=== PATIENT | female | born 1930 | race Asian ===

== ENCOUNTER 2017-03-22 04:35 | Inpatient (IN) | payer OTHER ==
[2017-03-22] MEDS ORDERED: NS 1,000 ML IV ONE (04:40)
--- NOTE | 2017-03-22 04:44 | EDPHY ---
H & P HPI/ROS: HPI CHIEF COMPLAINT: Fall, head injury HISTORY OF PRESENT ILLNESS: the patient very pleasant 86-year-old female, she does have significant past medical history for coronary artery disease and on daily aspirin and Plavix, hypertension, diabetes, she states that she was getting up to close the door at her [facility] living facility after she got up to use the bathroom and her right leg buckled underneath her. She fell with head strike. Denies LOC. Denies chest pain or palpitations or shortness of breath. She does complain of dizziness at this time and headache. Also complains of generalized weakness. Upon arrival here in the emergency room she has a GCS 15 she is alert or x4. She moves everything appropriately. She does have blood coming from the right side of her posterior scalp. Denies neck pain chest pain shortness of breath. Past Medical History: Hypertension, diabetes, coronary artery disease on aspirin and Plavix Past Surgical History: cervical fusion Social History: denies daily use of drugs alcohol tobacco products lives at [facility] Family History: noncontributory ROS REVIEW OF SYSTEMS: A comprehensive 10 point review of systems is otherwise negative aside from elements mentioned in the history of present illness. Exam Constitutional appears well nontoxic, triage nursing summary reviewed, vital signs reviewed, awake/alert. Eyes normal conjunctivae and sclera, EOMI, PERRLA. HENT head/neck: blood present right posterior scalp, in matted hair. No midline cervical spine pain, no step-offs, moist mucus membranes, no epistaxis, neck supple/ no meningismus, no raccoon eyes. Respiratory clear to auscultation bilaterally, normal breath sounds, no respiratory distress, no wheezing. Cardiovascular rate normal, regular rhythm, no murmur, no edema, distal pulses normal. Gastrointestinal soft, non-tender, no rebound, no guarding, normal bowel sounds, no distension, no pulsatile mass. Genitourinary no CVA tenderness. Musculoskeletal no midline vertebral tenderness, full range of motion, no calf swelling, no tenderness of extremities, no meningismus, good pulses, neurovascularly intact. Skin pink, warm, & dry, no rash, skin atraumatic. Neurologic awake, alert and oriented x 3, AAOx3, moves all 4 extremities equally, motor intact, sensory intact, CN II-XII intact, normal cerebellar, normal vision, normal speech. Psychiatric normal mood/affect. Heme/Lymph/Immune no lymphadenopathy. Differential Diagnosis: includes but is not limited to in a particular order, electrolyte disturbance, dehydration, mechanical trip and fall with head injury , intracranial bleed, skull fracture, subdural, epidural, traumatic subarachnoid , concussion, closed-head injury Medical Decision Making: plan for this patient youth nutritional monitor, EKG, check basic blood work including coags, troponin, CT head and CT cervical spine due to fall. Reason for CT head and CT cervical spine is fall on aspirin and Plavix. Re-evaluation: CT scan of the Head without contrast and cervical spine without contrast for trauma The results of the study are this shows a subdural hemorrhage 4 mm right parietal region. cervical spine shows no fracture. The study was read by Dr. Post I viewed the images myself on the PACS system. EKG interpretation by me on record in American Board of Addiction Medicine (ABAM) system. Impression Time of EKG 5:07 a.m., this is sinus rhythm rate of 52 micro amplitude. Otherwise no acute ischemic change. 0514AM: I spoke with Neurosurgery Dr. Everton Rich. They will be glad to consult on her. They do recommend admission. ICU admission. Will give DDAVP 0.3mcg/kg for To help with platelet function given that she is on aspirin and Plavix. Total 20mcg will be given. 0515AM: neurosurgery to admit given isolated neuro trauma. Subdural hemorrhage. ED x-ray chest one view negative for acute cardiopulmonary disease. 0527AM: Spoke with Dr. Everton Rich with Neurosurgery agrees to admit this patient. Patient be admitted ICU. At this time she is GCS 15, alert or x4 with no focal neuro deficit. She has a subdural hemorrhage small 4 mm right- sided, I have ordered her DDAVP for Platelet function given on ASA/PLAVIX. daughter updated bedside. Source: Patient, Family, EMS - Medical/Surgical History Hx Asthma: Yes Hx Chronic Respiratory Disease: No Hx Diabetes: Yes Hx Cardiac Disease: Yes Hx Renal Disease: No Hx Cirrhosis: No Hx Alcoholism: No Hx HIV/AIDS: No Hx Splenectomy or Spleen Trauma: No Other PMH: Coronary artery disease with stents 5 years ago at [facility]. [place] 3 weeks ago at [facility] treated without aggressive intervention due to patient's DNR status. HTN, hpylori, presbyopia. hyperlipidemia, duodenal ulcer. insomnia, hysterectomy. gout, spinal stenosis. ASHD, lactose intolerance. osteoporosis. TIA. stents x2. heart attack 2015 - Social History Smoking Status: Never smoked Constitutional: Initial Vital Signs Temperature (C) 36.4 C 03/22/17 04:45 Heart Rate 53 L 03/22/17 04:45 Respiratory Rate 16 03/22/17 04:45 Blood Pressure 179/76 H 03/22/17 04:45 O2 Sat (%) 95 03/22/17 04:45 O2 Delivery Mode Room Air Allergies/Adverse Reactions: tetracycline [Tetracycline] Allergy (Severe, Verified 10/24/15 09:51) Diarrhea lisinopril Allergy (Mild, Verified 10/24/15 09:51) pregabalin [From Lyrica] Allergy (Unknown, Verified 10/24/15 09:51) promethazine HCl [From Phenergan] Allergy (Unknown, Verified 10/24/15 09:51) Influenza Virus Vaccines [Influenza Virus Vaccine] Allergy (Verified 10/24/15 09 :51) ondansetron HCl [From Zofran (as hydrochloride)] Allergy (Verified 10/26/15 11: 45) Home Medications: Medication Instructions Recorded Acetaminophen [Tylenol ES 500 mg 1,000 mg PO BID PRN 10/24/15 (*)] Albuterol Hfa Anes Only [Proair 2 puffs IH Q4 PRN 10/24/15 Hfa Icu (*)] Allopurinol [Allopurinol 300 MG 150 mg PO DAILY 10/24/15 (RX)] Aspirin [Aspirin 81mg (*)] 81 mg PO DAILY 10/24/15 Atorvastatin Calcium [Lipitor 10 10 mg PO DAILY 10/24/15 mg (*)] Calcium Carb W/Vit D [Calcium Carb 500 mg PO BID 10/24/15 W/Vit D 500/200 (*)] Calcium Carbonate [Tums 500MG (*)] 500 mg PO TID PRN 10/24/15 Cetirizine HCl [Zyrtec] 10 mg PO DAILY 10/24/15 Cholecalciferol Vit D3 [Vitamin D3 1,000 units PO DAILY 10/24/15 (*)] Cholecalciferol Vit D3 [Vitamin D3 50,000 unit PO Q30D@09 10/24/15 (*)] D-Methorphan Hb/P-Ephed HCl 10 ml PO Q4 PRN 10/24/15 [Tussin Cough & Cold Liquid] Herbals/Supplements -Info Only 1 ea PO DAILY 10/24/15 Loperamide HCl [Imodium 2 mg (*)] 4 mg PO Q8 PRN 10/24/15 Losartan Potassium [Cozaar 50 mg 50 mg PO DAILY 10/24/15 (*)] Nitroglycerin [Nitrostat 0.4 mg 0.4 mg SL PRN PRN 10/24/15 (*)] Ranolazine [Ranexa] 1,000 mg PO BID 10/24/15 Risedronate Sodium [Actonel] 150 mg PO Q30D@0600 10/24/15 Sennosides/Docusate Sodium 1 each PO DAILY PRN 10/24/15 [Senokot-S] Tears/Hypromellose [Natural 1 - 2 drops EACHEYE PRN PRN 10/24/15 Balance] amLODIPine BESYLATE [Norvasc 5 mg 5 mg PO DAILY 10/24/15 (*)] HYDROmorphone HCL [Dilaudid] 2 mg PO Q4H PRN #60 tab 10/29/15 Methocarbamol [Robaxin 750 mg (*)] 750 mg PO TID PRN #90 tab 10/29/15 Metoclopramide [Reglan 10 mg tab 10 mg PO QID PRN #60 tab 10/29/15 (*)] Pantoprazole Sodium [Protonix 40mg 40 mg PO DAILY #90 tab 10/29/15 (*)] Medical Decision Making - Data Points Laboratory Results: Laboratory Results 03/22/17 05:05 03/22/17 03/22/17 03/22/17 05:05 05:05 05:05 WBC 5.14 10^3/uL 10^3/uL (3.80-9.50) RBC 3.76 10^6/uL L 10^6/uL (4.18-5.33) Hgb 13.1 g/dL g/dL (12.6-16.3) Hct 39.5 % % (38.0-47.0) MCV 105.1 fL H fL (81.5-99.8) MCH 34.8 pg H pg (27.9-34.1) MCHC 33.2 g/dL g/dL (32.4-36.7) RDW 12.6 % % (11.5-15.2) Plt Count 199 10^3/uL 10^3/uL (150-400) MPV 9.5 fL fL (8.7-11.7) Neut % (Auto) 71.7 % % (39.3-74.2) Lymph % (Auto) 16.9 % % (15.0-45.0) [place] % (Auto) 8.8 % % (4.5-13.0) Eos % (Auto) 1.8 % % (0.6-7.6) Baso % (Auto) 0.4 % % (0.3-1.7) Nucleat RBC Rel Count 0.0 % % (0.0-0.2) Absolute Neuts (auto) 3.69 10^3/uL 10^3/uL (1.70-6.50) Absolute Lymphs (auto) 0.87 10^3/uL L 10^3/uL (1.00-3.00) Absolute Monos (auto) 0.45 10^3/uL 10^3/uL (0.30-0.80) Absolute Eos (auto) 0.09 10^3/uL 10^3/uL (0.03-0.40) Absolute Basos (auto) 0.02 10^3/uL 10^3/uL (0.02-0.10) Absolute Nucleated RBC 0.00 10^3/uL 10^3/uL (0-0.01) Immature Gran % 0.4 % % (0.0-1.1) Immature Gran # 0.02 10^3/uL 10^3/uL (0.00-0.10) PT 12.9 SEC SEC (12.0-15.0) INR 0.98 (0.83-1.16) APTT 24.6 SEC SEC (23.0-38.0) Sodium Pending Potassium Pending Chloride Pending Carbon Dioxide Pending Anion Gap Pending BUN Pending Creatinine Pending Estimated GFR Pending Glucose Pending Calcium Pending Troponin I Pending Medications Given: Discontinued Medications Sodium Chloride (Ns) 1,000 mls @ 0 mls/hr IV ONCE ONE; Wide Open PRN Reason: Protocol Stop: 03/22/17 04:41 Last Admin: 03/22/17 05:08 Dose: 1,000 mls Departure - Departure Disposition: [facility] Inpatient Acute Clinical Impression: SDH (subdural hematoma) Fall Qualifiers: Encounter type: initial encounter Qualified Code(s): W19.XXXA - Unspecified fall, initial encounter Condition: Good Referrals: Patient,NotPresent [Primary Care Provider] - As per Instructions
--- NOTE | 2017-03-22 05:08 | CPEKG ---
Heart Rate: 52 RR Interval: 1154 QRSD Interval: 96 QT Interval: 424 QTC Interval: 395 QRS [place]: 61 T Wave Kenton: 7 EKG Severity - ABNORMAL ECG - EKG Impression: BORDERLINE T ABNORMALITIES, INFERIOR LEADS EKG Impression: SINUS RHYTHM Electronically Signed By: Sharan Orantes 24-Mar-2017 17:08:27
[2017-03-22 05:16] LABS: % IMMATURE GRANULYOCYTES 0.4 % (0.0-1.1); ABSOLUTE IMMATURE GRANULOCYTES 0.02 10^3/uL (0.00-0.10); ADD DIFF? NO; ADD MORPH? NO; ADD SCAN? NO; ATYPICAL LYMPHOCYTE FLAG 0 (0-99); FRAGMENT RBC FLAG 0 (0-99); HEMATOCRIT 39.5 % (38.0-47.0); HEMOGLOBIN 13.1 g/dL (12.6-16.3); LEFT SHIFT FLG 0 (0-99); LIPEMIA HEMOLYSIS FLAG 80 (0-99); MEAN CELL HEMOGLOBIN 34.8 pg (27.9-34.1); MEAN CELL HEMOGLOBIN CONCENTR. 33.2 g/dL (32.4-36.7); MEAN CELL VOLUME 105.1 fL (81.5-99.8); MEAN PLATELET VOLUME 9.5 fL (8.7-11.7); PLATELET CLUMPS FLAG 20 (0-99); PLATELET COUNT 199 10^3/uL (150-400); RED BLOOD CELL COUNT 3.76 10^6/uL (4.18-5.33); RED CELL DISTRIBUTION WIDTH 12.6 % (11.5-15.2)
[2017-03-22] MEDS ORDERED: DESMOPRESSIN ACETATE 20 MCG in NS 50 ML IV ONE (05:22)
[2017-03-22 05:24] LABS: APTT 24.6 SEC (23.0-38.0); INR 0.98 (0.83-1.16); PROTIME(PATIENT) 12.9 SEC (12.0-15.0)
[2017-03-22 05:30] LABS: ANION GAP 11 mEq/L (8-16); CALCIUM 9.7 mg/dL (8.5-10.4); CARBON DIOXIDE 22 mEq/l (22-31); CHLORIDE 109 mEq/L (97-110); GLOMERULAR FILTRATION RATE 53; GLUCOSE 165 mg/dL (70-100); POTASSIUM 4.2 mEq/L (3.5-5.2); SODIUM 142 mEq/L (134-144)
[2017-03-22 05:42] LABS: TROPONIN I < 0.012 ng/mL (0-0.034)
[2017-03-22] MEDS ORDERED: TRANEXAMIC ACID 1,000 MG in NS 100 ML IV ONE (05:46)
--- NOTE | 2017-03-22 05:48 | PDGENHP ---
History and Physical - Chief Complaint Head injury/mechanical fall - History of Present Illness This is a very pleasant 86-year-old woman who has a history of chronic insomnia , diabetes, coronary artery disease and cervical neck fusion who is currently on aspirin and Plavix to circumvent the need for another stent. She was in her [facility] going to the bathroom 3rd time when her right leg gave out and she hit the back of her head. She does not recall hitting her head and is amnestic to the event. She complains of chronic headache from neck pain but this is no worse than her usual pain. She is slightly "dizzy." Her daughter is at her side and is presenting the information to us. Her daughter was called cord to form by the night nurse at [place] where she resides History Information - Allergies/Home Medication List Allergies/Adverse Reactions: tetracycline [Tetracycline] Allergy (Severe, Verified 10/24/15 09:51) Diarrhea lisinopril Allergy (Mild, Verified 10/24/15 09:51) pregabalin [From Lyrica] Allergy (Unknown, Verified 10/24/15 09:51) promethazine HCl [From Phenergan] Allergy (Unknown, Verified 10/24/15 09:51) Influenza Virus Vaccines [Influenza Virus Vaccine] Allergy (Verified 10/24/15 09 :51) ondansetron HCl [From Zofran (as hydrochloride)] Allergy (Verified 10/26/15 11: 45) Home Medications: Acetaminophen [Tylenol ES 500 mg (*)] 1,000 mg PO BID PRN 10/24/15 [Last Taken Unknown] Albuterol Hfa Anes Only [Proair Hfa Icu (*)] 2 puffs IH Q4 PRN 10/24/15 [Last Taken Unknown] Allopurinol [Allopurinol 300 MG (RX)] 150 mg PO DAILY 10/24/15 [Last Taken 10/23] Aspirin [Aspirin 81mg (*)] 81 mg PO DAILY 10/24/15 [Last Taken 10/24/15] Atorvastatin Calcium [Lipitor 10 mg (*)] 10 mg PO DAILY 10/24/15 [Last Taken 12/05] Calcium Carb W/Vit D [Calcium Carb W/Vit D 500/200 (*)] 500 mg PO BID 10/24/15 [ Last Taken 10/24/15] Calcium Carbonate [Tums 500MG (*)] 500 mg PO TID PRN 10/24/15 [Last Taken Unknown] Cetirizine HCl [Zyrtec] 10 mg PO DAILY 10/24/15 [Last Taken 10/24/15] Cholecalciferol Vit D3 [Vitamin D3 (*)] 1,000 units PO DAILY 10/24/15 [Last Taken 10/24/15] Cholecalciferol Vit D3 [Vitamin D3 (*)] 50,000 unit PO Q30D@09 10/24/15 [Last Taken Unknown] D-Methorphan Hb/P-Ephed HCl [Tussin Cough & Cold Liquid] 10 ml PO Q4 PRN [Last Taken Unknown] Herbals/Supplements -Info Only 1 ea PO DAILY 10/24/15 [Last Taken Unknown] Loperamide HCl [Imodium 2 mg (*)] 4 mg PO Q8 PRN 10/24/15 [Last Taken Unknown] Losartan Potassium [Cozaar 50 mg (*)] 50 mg PO DAILY 10/24/15 [Last Taken ] Nitroglycerin [Nitrostat 0.4 mg (*)] 0.4 mg SL PRN PRN 10/24/15 [Last Taken Unknown] Ranolazine [Ranexa] 1,000 mg PO BID 10/24/15 [Last Taken 10/24/15] Risedronate Sodium [Actonel] 150 mg PO Q30D@0600 10/24/15 [Last Taken Unknown] Sennosides/Docusate Sodium [Senokot-S] 1 each PO DAILY PRN 10/24/15 [Last Taken Unknown] Tears/Hypromellose [Natural Balance] 1 - 2 drops EACHEYE PRN PRN 10/24/15 [Last Taken Unknown] amLODIPine BESYLATE [Norvasc 5 mg (*)] 5 mg PO DAILY 10/24/15 [Last Taken ] I have personally reviewed and updated: medical history, social history, surgical history - Past Medical History coronary artery disease (Where she resides), chronic insomnia, diabetes type 2, hypertension Additional medical history: Gout, osteoporosis, cataracts, TIA, presbyopia, duodenal ulcer, incontinence of feces, spinal stenosis - Surgical History Reports: angioplasty, hysterectomy, spinal surgery - Family History Positive for: non-pertinent - Social History Smoking Status: Never smoked Alcohol Use: None Drug Use: None Review of Systems ROS: 2-9 pt reviewed & negative except for what was stated in HPI & below Muscolosketal: Reports: neck pain Physical Exam Physical Exam: Alert oriented no distress Pupils equal reactive Extraocular motions intact No JVD thyromegaly or supraclavicular adenopathy trachea midline Posterior septal laceration approximately 3 cm Regular rate and rhythm Clear to auscultation bilaterally Abdomen protuberant soft no hepato-splenomegaly nontender Extremities no deformities. Weak distal pulses. No peripheral edema Good quality control head strength bilaterally. Good plantar flexion bilaterally good dorsiflexion bilaterally Normal affect Temp Pulse Resp BP Pulse Ox 36.4 C 53 L 16 179/76 H 95 03/22/17 04:45 03/22/17 04:45 03/22/17 04:45 03/22/17 04:45 03/22/17 04:45 Lab Data & Imaging Review 03/22/17 05:05 03/22/17 05:05 WBC 5.14 10^3/uL (3.80-9.50) 03/22/17 05:05 RBC 3.76 10^6/uL (4.18-5.33) L 03/22/17 05:05 Hgb 13.1 g/dL (12.6-16.3) 03/22/17 05:05 Hct 39.5 % (38.0-47.0) 03/22/17 05:05 MCV 105.1 fL (81.5-99.8) H 03/22/17 05:05 MCH 34.8 pg (27.9-34.1) H 03/22/17 05:05 MCHC 33.2 g/dL (32.4-36.7) 03/22/17 05:05 RDW 12.6 % (11.5-15.2) 03/22/17 05:05 Plt Count 199 10^3/uL (150-400) 03/22/17 05:05 MPV 9.5 fL (8.7-11.7) 03/22/17 05:05 Neut % (Auto) 71.7 % (39.3-74.2) 03/22/17 05:05 Lymph % (Auto) 16.9 % (15.0-45.0) 03/22/17 05:05 [place] % (Auto) 8.8 % (4.5-13.0) 03/22/17 05:05 Eos % (Auto) 1.8 % (0.6-7.6) 03/22/17 05:05 Baso % (Auto) 0.4 % (0.3-1.7) 03/22/17 05:05 Nucleat RBC Rel Count 0.0 % (0.0-0.2) 03/22/17 05:05 Absolute Neuts (auto) 3.69 10^3/uL (1.70-6.50) 03/22/17 05:05 Absolute Lymphs (auto) 0.87 10^3/uL (1.00-3.00) L 03/22/17 05:05 Absolute Monos (auto) 0.45 10^3/uL (0.30-0.80) 03/22/17 05:05 Absolute Eos (auto) 0.09 10^3/uL (0.03-0.40) 03/22/17 05:05 Absolute Basos (auto) 0.02 10^3/uL (0.02-0.10) 03/22/17 05:05 Absolute Nucleated RBC 0.00 10^3/uL (0-0.01) 03/22/17 05:05 Immature Gran % 0.4 % (0.0-1.1) 03/22/17 05:05 Immature Gran # 0.02 10^3/uL (0.00-0.10) 03/22/17 05:05 PT 12.9 SEC (12.0-15.0) 03/22/17 05:05 INR 0.98 (0.83-1.16) 03/22/17 05:05 APTT 24.6 SEC (23.0-38.0) 03/22/17 05:05 Sodium 142 mEq/L (134-144) 03/22/17 05:05 Potassium 4.2 mEq/L (3.5-5.2) 03/22/17 05:05 Chloride 109 mEq/L (97-110) 03/22/17 05:05 Carbon Dioxide 22 mEq/l (22-31) 03/22/17 05:05 Anion Gap 11 mEq/L (8-16) 03/22/17 05:05 BUN 22 mg/dL (7-23) 03/22/17 05:05 Creatinine 1.0 mg/dL (0.6-1.0) 03/22/17 05:05 Estimated GFR 53 03/22/17 05:05 Glucose 165 mg/dL (70-100) H 03/22/17 05:05 Calcium 9.7 mg/dL (8.5-10.4) 03/22/17 05:05 Troponin I < 0.012 ng/mL (0-0.034) 03/22/17 05:05 Imaging Review: CT scan of the head, neck Playing chest x-ray Images personally reviewed on PACS - 4 mm right parietal subdural hematoma There is evidence of previous cervical fusion without any acute changes Chest x-ray has no acute changes EKG additional interpertation: Patient has an abnormal EKG but no evidence of acute changes. She has had previous stenting/coronary artery disease possible infarct. formal read is still pending Assessment & Plan Assessment: Fall (Acute) SDH (subdural hematoma) (Acute) Multiple medical problems including hypertension diabetes insomnia fecal incontinence gout presbyopia hyperlipidemia and history of TIA. Plan: Neurosurgery consultation with Dr. Everton Rich. Hold anticoagulation for now. DDAVP, 1 pack of platelets and T8 say ordered. Medication will be restarted from home once are verified. Medicine consult due to age and multiple comorbid problems. ICU admission Q2 neuro checks Repeat CT scan in 4 hours
[2017-03-22] MEDS ORDERED: NALOXONE HCL 0.4 MG/ML INJ IVP PRN (06:00)
[2017-03-22] MEDS ORDERED: levETIRAcetam 500 MG in NS 100 ML IV ONE (06:00)
--- NOTE | 2017-03-22 07:48 | TRAUMAPN ---
Assessment/Plan: Since single system issue will transfer to Dr. Everton Rich's service. I have spoken with David Cisneros. Objective: Vital Signs Temp Pulse Resp BP Pulse Ox 36.5 C 79 18 182/89 H 96 03/22/17 06:33 03/22/17 06:33 03/22/17 06:33 03/22/17 06:33 03/22/17 06:33 03/21/17 03/22/17 03/23/17 05:59 05:59 05:59 Intake Total 1000 Output Total 450 Balance -450 1000 PT 12.9 SEC (12.0-15.0) 03/22/17 05:05 INR 0.98 (0.83-1.16) 03/22/17 05:05
[2017-03-22] MEDS ORDERED: hydrALAZINE 20 MG/ML VIAL IVP PRN (07:50)
[2017-03-22] MEDS ORDERED: NS 1,000 ML IV SCH (08:00)
[2017-03-22 08:10] VITALS: TEMP 97.3
[2017-03-22] MEDS: ACETAMINOPHEN 325 MG TAB PO PRN ×2 (08:32→14:35)
--- NOTE | 2017-03-22 10:31 | GCON ---
[f rep st] CONSULTATION CONSULTATION/HISTORY AND PHYSICAL CHIEF COMPLAINT: Closed head injury with mechanical fall. HISTORY OF PRESENT ILLNESS: The patient is an 86-year-old female, who is known to [facility] for both neck and back surgery. She has a history of chronic insomnia, diabetes, coronary arter y disease and a cervical neck fusion and lumbar neck fusion. She is currently on aspirin and Plavix to circumvent the need for another stent. She was in her [facility], going to the bathroom, when her right leg gave out. She fell and hit the back of her head. Suffered a laceration to this area that was repaired by the emergency room staff. She does not recall hitting her head and is amnesti c to the event. She complains of chronic headache from neck pain but this is no worse than usual. She complained of some slight dizziness. Her daughter was present as well. She denies any numbness or tingling to the upper or lower extremities. No loss of bowel or bladder control. HOME MEDICATIONS: Please see med rec form. PAST MEDICAL HISTORY: Significant for the following: Coronary artery disease, chronic insomnia, di abetes type 2, hypertension, gout, osteoporosis, cataracts, TIA, presbyopia, duodenal ulcer, inconti nence of feces and spinal stenosis. ALLERGIES: Tetracycline, lisinopril, Lyrica, Phenergan, influenza virus vaccine and Zofran. PAST SURGICAL HISTORY: Angioplasty, hysterectomy, lumbar and cervical spine surgery. FAMILY HISTORY: Reviewed and not pertinent to the presenting complaint. SOCIAL HISTORY: Patient is . She lives here in [place], [place]. [facility]ides in [facility]. She has never smoked. Does not drink alcohol. Does not use any illicit drugs. IMMUNIZATIONS: Reported up to date. TRAVEL: No recent travel. REVIEW OF SYSTEMS: A 10-point review of systems was performed and was negative, otherwise noted in HPI. She denies any neck pain or chest pain. She does have a headache. No abdominal complaints. No nausea, vomiting or diarrhea. PHYSICAL EXAM: GENERAL: This is an awake, alert, oriented female in no acute distress. MOST RECEN T VITAL SIGNS: Blood pressure 182/89, heart rate of 79, 18 respirations, 96% on room air, temperatu re 36.5. HEENT: Head is normocephalic, atraumatic except for incision to the back part of her skul l that was repaired with ladonna. Pupils are equal, round, reactive to light. EOMIs intact. Full visual borrego by confrontation. Ears are patent. Nose is patent. NECK: Soft and supple. No midl ine tenderness. No pain with flexion, extension, lateral bending, rotation. RESPIRATORY: Deferred . CARDIAC: Deferred. ABDOMEN: Soft, nontender. No peritoneal signs. : Deferred. RECTAL: D eferred. NEURO: The patient is awake, alert, oriented to name, place, location, date, time, and si tuation. Memory is intact to past and current events but amnestic to the fall. Speech: No aphasia , dysarthria, dysphonia. Cranial nerves 2-12 grossly intact. Motor: Patient has 5/5 strength in a ll muscle groups of bilateral upper and lower extremities to include deltoids, biceps, triceps, brac hioradialis, wrist flexion, extensors, industrial machine operator intrinsic fingers, iliopsoas, quadriceps, hamstring, yulissa ntar flexion, dorsiflexion, EHL testing with the exception of the left deltoids, triceps and biceps was limited due to pain at the IV site. 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 Intrinsic fi ngers, wrist extension, wrist flexion is 5/5 in the left upper extremity. Sensation is grossly inta ct to light touch throughout all dermatome distributions upper and lower extremities. Negative stra ight leg raise. Negative SANDY test. Reflexes of biceps, triceps, brachioradialis, knee jerks, and ankle jerk are 2+/4. Toes are downgoing bilaterally. Sung's negative. Babinski negative. No evidence of clonus. MEDICAL DECISION MAKING/DIAGNOSTIC STUDIES: Laboratory tests obtained 03/22/2017 show a white count of 5.14 with a hemoglobin and hematocrit of 13.1, and 39.5, with a platelet count of 199. Coags on 03/22/2017 shows a PT of 12.9, INR 0.98 and PTT of 24.6. Chemistry on 03/22/2017 shows a sodium 14 2, potassium 4.2, chloride 109, CO2 22, BUN 22, creatinine 1.0, glucose 165. A CT scan of the cervical spine shows no acute traumatic injury, no fracture. She is status post AC DF. Appears to be good solid bony fusion. CT scan of the head shows a small 4 mm right-sided acute subdural hematoma. No shift was noted. No official report is in [place] at this point. We will follow up on this. IMPRESSION: 1. Fall. 2. Acute subdural hematoma. PLAN AND DISCUSSION: The patient is an 86-year-old female, who was admitted to the trauma services for a fall with acute subdural hematoma. Dr. Somers and Dr. Stark did see and evaluate the patien t and will sign off. We will assume primary of her care while in the hospital. She was given DDAVP and platelets as she is on aspirin and Plavix. She had a CT scan done this morning at 4:50 a.m. S he will get a repeat CT scan done at 10:00 a.m. The nurse will call me once this is obtained. We w ill continue with q.2 hour neuro checks. Call with any worsening symptoms. All questions and angelina rns were answered. /[id number]/MODL
[2017-03-22 11:58] VITALS: BP 150/47; PULSE 60; RESP 20; O2SAT 100
[2017-03-22] MEDS ORDERED: [UNRECOGNIZED DRUG - OTHER] PO PRN (12:07)
[2017-03-22] MEDS ORDERED: PROCHLORPERAZINE MALEATE 25 MG SUPPR PR PRN (12:07)
[2017-03-22] MEDS ORDERED: HYDROmorphONE/DILAUDID 2 MG TAB PO PRN (12:07)
[2017-03-22] MEDS ORDERED: CETIRIZINE 10 MG TAB PO PRN (12:07)
[2017-03-22] MEDS ORDERED: SENNOSIDES/DOCUSATE SODIUM TAB PO PRN (12:07)
[2017-03-22] MEDS ORDERED: NON-FORMULARY NEW DRUG (Tears/Hypromellose [Natural Balance] 0 DROPS) EACHEYE PRN (12:07)
[2017-03-22] MEDS ORDERED: LOPERAMIDE HCL 2 MG CAP PO PRN (12:07)
[2017-03-22] MEDS ORDERED: METOCLOPRAMIDE 10 MG TAB PO PRN (12:07)
[2017-03-22] MEDS ORDERED: METHOCARBAMOL 750 MG TAB PO PRN (12:07)
[2017-03-22] MEDS ORDERED: NITROGLYCERIN 0.4 MG BTL SL PRN (12:07)
[2017-03-22] MEDS ORDERED: SCOPOLAMINE HYDROBROMIDE 1.5 MG PATCH TD PRN (12:07)
[2017-03-22] MEDS ORDERED: CALCIUM CARBONATE 500 MG CHEWABLE TAB PO PRN (12:07)
[2017-03-22] MEDS ORDERED: DEXTROMETHORPHAN PO PRN (12:07)
[2017-03-22] MEDS ORDERED: PSEUDOEPHEDRINE PO PRN (12:07)
[2017-03-22] MEDS ORDERED: PROCHLORPERAZINE MALEATE 5 MG TAB PO PRN ×2 (12:07→12:33)
--- NOTE | 2017-03-22 12:07 | SOAPPROG ---
SOAP Progress Note Assessment/Plan: Repeat CT head shows no changes. Reviewed with Dr Rich. Off of ASA/plavix for [address] White team in 2-3 weeks. 03/22/17 12:06 Objective: Vital Signs Temp Pulse Resp BP Pulse Ox 36.3 C 60 20 150/47 H 100 03/22/17 08:03 03/22/17 11:00 03/22/17 11:00 03/22/17 11:00 03/22/17 11:00 03/21/17 03/22/17 03/23/17 05:59 05:59 05:59 Intake Total 1000 Output Total 450 Balance -450 1000 PT 12.9 SEC (12.0-15.0) 03/22/17 05:05 INR 0.98 (0.83-1.16) 03/22/17 05:05 ICD10 Worksheet Patient Problems: Problems Problem Status Onset Fall Acute SDH (subdural hematoma) Acute Benign hypertension Active CAD - Coronary arteriosclerosis Active Hyperlipidemia Active Placement of stent in coronary artery Active Dizziness Acute Headache Acute Nausea & vomiting Acute
--- NOTE | 2017-03-22 12:15 | PDIAF ---
- Diagnosis Diagnosis: s/p fall with small SDH Code Status: Do Not Resuscitate - Medication Management Discharge Medications: Medications to Continue on Transfer Allopurinol [Allopurinol 300 MG (RX)] 150 mg PO DAILY18 10/24/15 [Last Taken 12/05] Atorvastatin Calcium [Lipitor 10 mg (*)] 10 mg PO DAILY18 10/24/15 [Last Taken 10/24/15] Calcium Carbonate [Tums 500MG (*)] 500 mg PO TID PRN 10/24/15 [Last Taken Unknown] Cetirizine HCl [Zyrtec] 10 mg PO DAILY PRN 10/24/15 [Last Taken 10/24/15] Cholecalciferol Vit D3 [Vitamin D3 (*)] 1,000 units PO DAILY 10/24/15 [Last Taken 10/24/15] D-Methorphan Hb/P-Ephed HCl [Tussin Cough & Cold Liquid] 10 ml PO Q4 PRN [Last Taken Unknown] Herbals/Supplements -Info Only 1 ea PO DAILY 10/24/15 [Last Taken Unknown] Loperamide HCl [Imodium 2 mg (*)] 4 mg PO Q8HRS PRN 10/24/15 [Last Taken Unknown ] Losartan Potassium [Cozaar 50 mg (*)] 50 mg PO DAILY 10/24/15 [Last Taken ] Nitroglycerin [Nitrostat 0.4 mg (*)] 0.4 mg SL PRN PRN 10/24/15 [Last Taken Unknown] Ranolazine [Ranexa] 1,000 mg PO BID 10/24/15 [Last Taken 10/24/15] Sennosides/Docusate Sodium [Senokot-S] 1 each PO DAILY PRN 10/24/15 [Last Taken Unknown] Tears/Hypromellose [Natural Balance] 1 - 2 drops EACHEYE PRN PRN 10/24/15 [Last Taken Unknown] HYDROmorphone HCL [Dilaudid 2 mg (*)] 2 mg PO Q4H PRN #60 tab 10/29/15 [Last Taken Unknown] Pantoprazole Sodium [Protonix 40mg (*)] 40 mg PO DAILY #90 tab 10/29/15 [Last Taken Unknown] Acetaminophen [Tylenol 325mg (*)] 325 - 650 mg PO Q4HRS PRN #0 tab 03/22/17 [ Last Taken Unknown] Albuterol [Proventil Inhaler HFA (*)] 2 puffs IH Q4HRS 03/22/17 [Last Taken Unknown] Amoxicillin 2,000 mg PO DAILY PRN 03/22/17 [Last Taken Unknown] Methocarbamol [Robaxin 750 mg (*)] 375 mg PO Q4HRS PRN 03/22/17 [Last Taken Unknown] Metoclopramide [Reglan 10 mg tab (*)] 10 mg PO Q6HRS PRN 03/22/17 [Last Taken Unknown] Prochlorperazine Maleate [Compazine 25mg supp (*)] 25 mg MI BID PRN 03/22/17 [ Last Taken Unknown] Prochlorperazine Maleate [Compazine 5mg (*)] 5 mg PO Q6-8PRN PRN 03/22/17 [Last Taken Unknown] Scopolamine [Transderm-Scop] 1.5 mg TD Q3D PRN 03/22/17 [Last Taken Unknown] It Service Technician Antibiotics: none Discharge Medications: Refer to the Discharge Home Medication list for PRN reason. PICC Care - Routine: N/A - Orders Services needed: Home Care, Registered Nurse, Physical Therapy, Occupational Therapy, Speech Language Pathologist Home Care Face to Face: I certify that this patient was under my care and that I had the required [id number] encounter meeting the encounter requirements on the discharge day. My findings support the fact that the patient is homebound as defined in CMS Chapter 7 Medicare Benefits Manual 30.1.1, The condition of the patient is such that there exists a normal inability to leave home and consequently, leaving home would require a considerable and taxing effort. Oxygen: to keep O2 sat above 90% Diet Recommendation: no restrictions on diet Diet Texture: Regular Texture Diet - Follow Up Care Current Providers and Referrals: Patient,NotPresent [Unknown] - As per Instructions Johnny Rich MD [Medical Doctor] - (follow up in 2 weeks)
[2017-03-22] MEDS ORDERED: TEARS/DEXTRAN 70/HYPROMELLOSE 15 ML OPHT.BTL EACHEYE PRN (12:31)
[2017-03-22] MEDS ORDERED: ALBUTEROL 60 PUFFS/8 GM MDI IH SCH (14:00)
[2017-03-22] MEDS ORDERED: ATORVASTATIN CALCIUM 10 MG TAB PO SCH (18:00)
[2017-03-22] MEDS ORDERED: ALLOPURINOL 300 MG TAB PO SCH (18:00)
[2017-03-22] MEDS ORDERED: NON-FORMULARY NEW DRUG (Ranolazine [Ranexa] 1,000 MG) PO SCH (21:00)
[2017-03-22] MEDS ORDERED: RANOLAZINE 500 MG TAB.ER PO SCH (21:00)
[2017-03-23] MEDS ORDERED: CHOLECALCIFEROL VIT D3 1,000 UNITS TAB PO SCH (09:00)
[2017-03-23] MEDS ORDERED: PANTOPRAZOLE SODIUM 40 MG TAB PO SCH (09:00)
[2017-03-23] MEDS ORDERED: LOSARTAN POTASSIUM 50 MG TAB PO SCH (09:00)
[2017-03-23] MEDS ORDERED: Herbals/Supplements -Info Only PO SCH (09:00)
== END 2017-03-22 15:17 | disposition home health service (06) | DRG 87 ==
LOC: EDUNIT# → F2N 06:25
PROVIDERS: ADMIT Neurological Surgery; ATTEND Neurological Surgery
PROC: 0HQ0XZZ Repair Scalp Skin, External Approach (ICD-10-PCS; principal; 2017-03-22)
DX: S06.5X0A Traumatic subdural hemorrhage without loss of consciousness, initial encounter (principal); S01.01XA Laceration without foreign body of scalp, initial encounter; W19.XXXA Unspecified fall, initial encounter; Y92.199 Unspecified place in other specified residential institution as the place of occurrence of the external cause; R40.2412 Glasgow coma scale score 13-15, at arrival to emergency department; I25.10 Atherosclerotic heart disease of native coronary artery without angina pectoris; I10 Essential (primary) hypertension; E11.9 Type 2 diabetes mellitus without complications; E78.5 Hyperlipidemia, unspecified; F51.04 Psychophysiologic insomnia; I25.2 Old myocardial infarction; Z79.82 Long term (current) use of aspirin; Z87.19 Personal history of other diseases of the digestive system; Z95.5 Presence of coronary angioplasty implant and graft; Z86.73 Personal history of transient ischemic attack (TIA), and cerebral infarction without residual deficits; Z98.1 Arthrodesis status
CPT/HCPCS: 92523-GN; 96374; 97161-GP; 97165-GO; G8978-GP-CI; G8979-GP-CI; G8980-GP-CI; G8987-GO-CI; G8988-GO-CI; G9168-GO-CI; G9169-GN-CI; G9170-GN-CI; J1953; J2597; P9035

== ENCOUNTER 2017-04-21 11:30 | Inpatient (IN) | payer OTHER ==
[2017-04-21] MEDS ORDERED: TRANEXAMIC ACID 1,000 MG in NS 100 ML IV ONE (13:11)
[2017-04-21] MEDS ORDERED: DESMOPRESSIN ACETATE 20 MCG in NS 50 ML IV ONE (13:12)
--- NOTE | 2017-04-21 13:50 | EDPHY ---
H & P Stated Complaint: mech fall, poss LOC/hit head, N/V since accident, + blood thinners Time Seen by Provider: 04/21/17 11:46 HPI/ROS: Chief Complaint: Head injury, vomiting HPI: 86-year-old with a history of coronary to artery disease, was found on the floor in her home earlier today. Patient states that she believes she lost her balance and fell. She may have struck the back of her head but does not recall specific impact. Patient did have some nausea and vomiting. She is on aspirin and Plavix. Also some chronic neck pain. No new numbness or tingling. No weakness. No fevers or chills. No chest pain shortness of breath. ROS: 10 point Review of Systems is negative except as noted in the HPI. PMH: Coronary artery disease, hypertension Social History: No smoking, no alcohol, no recreational drug use Family History: non-contributory Physical Exam: Gen: Awake, Alert, Airway Intact HEENT: Head: Atraumatic Eyes: PERRLA, EOMI Nose: No epistaxis Mouth: Normal dentition, Airway patent Face: No deformity Neck: non-tender, no stepoff, Full ROM without pain Chest: non-tender, lungs CTA Heart: normal heart tones Abd: soft, non-tender, atraumatic Pelvis: non-tender, stable to AP and Lateral compression Back: atraumatic, no midline tenderness Ext: atramatic, full ROM Skin: no rash Neuro: CN II-XII intact, Strength 5/5 in all extremities, sensation intact in all extremities - Personal History Current Tetanus Diphtheria and Acellular Pertussis (TDAP): Yes Tetanus Vaccine Date: <10 years - Medical/Surgical History Hx Asthma: Yes Hx Chronic Respiratory Disease: No Hx Diabetes: Yes Hx Cardiac Disease: Yes Hx Renal Disease: No Hx Cirrhosis: No Hx Alcoholism: No Hx HIV/AIDS: No Hx Splenectomy or Spleen Trauma: No Other PMH: multiple falls, SDH- 03/22/2017. Coronary artery disease with stents 5 years ago at [facility]. [place] 3 weeks ago at [facility] treated without aggressive intervention due to patient's DNR status. HTN, hpylori, presbyopia. hyperlipidemia, duodenal ulcer. insomnia, hysterectomy. gout, spinal stenosis. ASHD, lactose intolerance. osteoporosis. TIA. stents x2. heart attack 2015 - Social History Smoking Status: Never smoked Constitutional: Initial Vital Signs Temperature (C) 36.6 C 04/21/17 11:30 Heart Rate 59 L 04/21/17 11:30 Respiratory Rate 18 04/21/17 11:30 Blood Pressure 211/97 H 04/21/17 11:30 O2 Sat (%) 93 04/21/17 11:30 O2 Delivery Mode Room Air Allergies/Adverse Reactions: tetracycline [Tetracycline] Allergy (Severe, Verified 04/21/17 11:54) Diarrhea lisinopril Allergy (Mild, Verified 04/21/17 11:54) pregabalin [From Lyrica] Allergy (Unknown, Verified 04/21/17 11:54) promethazine HCl [From Phenergan] Allergy (Unknown, Verified 04/21/17 11:54) Influenza Virus Vaccines [Influenza Virus Vaccine] Allergy (Verified 04/21/17 11 :54) ondansetron HCl [From Zofran (as hydrochloride)] Allergy (Verified 04/21/17 11: 54) Home Medications: Medication Instructions Recorded Allopurinol [Allopurinol 300 MG 150 mg PO DAILY18 10/24/15 (RX)] Atorvastatin Calcium [Lipitor 10 10 mg PO DAILY18 10/24/15 mg (*)] Calcium Carbonate [Tums 500MG (*)] 500 mg PO TID PRN 10/24/15 Cetirizine HCl [Zyrtec] 10 mg PO DAILY PRN 10/24/15 Cholecalciferol Vit D3 [Vitamin D3 1,000 units PO DAILY 10/24/15 (*)] D-Methorphan Hb/P-Ephed HCl 10 ml PO Q4 PRN 10/24/15 [Tussin Cough & Cold Liquid] Herbals/Supplements -Info Only 1 ea PO DAILY 10/24/15 Loperamide HCl [Imodium 2 mg (*)] 4 mg PO Q8HRS PRN 10/24/15 Losartan Potassium [Cozaar 50 mg 50 mg PO DAILY 10/24/15 (*)] Nitroglycerin [Nitrostat 0.4 mg 0.4 mg SL PRN PRN 10/24/15 (*)] Ranolazine [Ranexa] 1,000 mg PO BID 10/24/15 Sennosides/Docusate Sodium 1 each PO DAILY PRN 10/24/15 [Senokot-S] Tears/Hypromellose [Natural 1 - 2 drops EACHEYE PRN PRN 10/24/15 Balance] HYDROmorphone HCL [Dilaudid 2 mg 2 mg PO Q4H PRN #60 tab 10/29/15 (*)] Pantoprazole Sodium [Protonix 40mg 40 mg PO DAILY #90 tab 10/29/15 (*)] Acetaminophen [Tylenol 325mg (*)] 325 - 650 mg PO Q4HRS PRN #0 tab 03/22/17 Albuterol [Proventil Inhaler HFA 2 puffs IH Q4HRS 03/22/17 (*)] Amoxicillin 2,000 mg PO DAILY PRN 03/22/17 Methocarbamol [Robaxin 750 mg (*)] 375 mg PO Q4HRS PRN 03/22/17 Metoclopramide [Reglan 10 mg tab 10 mg PO Q6HRS PRN 03/22/17 (*)] Prochlorperazine Maleate 25 mg SD BID PRN 03/22/17 [Compazine 25mg supp (*)] Prochlorperazine Maleate 5 mg PO Q6-8PRN PRN 03/22/17 [Compazine 5mg (*)] Scopolamine [Transderm-Scop] 1.5 mg TD Q3D PRN 03/22/17 Medical Decision Making - Diagnostics Imaging Results: Imaging Impressions Cervical Spine CT 04/21/17 12:07 Impression: 1. Stable CT cervical spine study as detailed above. Findings discussed with Don Barraza MD at 12:57 hour, 04/21/2017. Head CT 04/21/17 12:07 Impression: 1. Development of acute subdural hematoma over the right cerebral hemisphere as well as along the tentorium as detailed above with small amount of right-to- left shift. 2. Soft tissue contusion over the superior posterior calvarium without underlying fracture. Findings discussed with Don Barraza MD at 12:54 hour, 04/21/2017. Imaging: Discussed imaging studies w/ call center professional Radiologist ED Course/Re-evaluation: CT scan of the head shows a 13 mm subdural hematoma. Patient is on Plavix. I have ordered a platelet transfusion. I have also ordered DDAVP and tranexamic acid. I have discussed with Dr. Traylor, neurosurgery. He will consult on the patient in the emergency department. I have discussed with Dr. Scot Crain, trauma surgery. He will admit to his service for further care. - Data Points Medications Given: Discontinued Medications Tranexamic Acid 1,000 mg/ (Sodium Chloride) 110 mls @ 0 mls/hr IV ONCALL ONE PRN Reason: As Directed Stop: 04/21/17 13:12 Last Admin: 04/21/17 13:34 Dose: 110 mls Departure - Departure Disposition: [facility] Inpatient Acute Clinical Impression: SDH (subdural hematoma) Condition: Serious
--- NOTE | 2017-04-21 13:55 | ASMTCMCOM ---
CM Note CM Note Notes: Case management: Patient in ER S/P mechanical fall at her AL: [facility] in [place]. Patient shares an adjoining ro om (studio) with her sister. Patient is accompanied by her daughter Lina who will be the patient's primary contact for her admission. Lina states that patient has been in the SNF at [facility] in the past and was in a semi-private room. This was NOT a good fit for the patient. Lina requests to be involved with any D/C planning and that she may consider looking in to "[facility]" or other options IF SNF is recommended and a private room is not AV at [facility]. We also discussed the possibilty of the p atient discharging home with HH pending further workup and PT/OT evaluation during pts. admission. CM will follow patient with D/C planning Date Signed: 04/21/2017 01:54 PM Electronically Signed By:January Daley
[2017-04-21] MEDS ORDERED: TRANEXAMIC ACID 1,000 MG in NS 500 ML IV ONE (14:37)
--- NOTE | 2017-04-21 15:56 | GCON ---
[f rep st] CONSULTATION NEUROSURGERY CONSULTATION DATE OF CONSULTATION: 04/21/2017 The patient was seen and evaluated in the emergency department at [facility] at appr oximately 1 p.m. HISTORY OF PRESENTING ILLNESS: The patient is an 86-year-old woman who is known to my partner, Dr. Rich, who has done several spine operations on her, and recently saw her on March 22 after a fall with a small right parietal subdural hematoma. She apparently fell again today at home, and denies striking her head although her daughter says that it is possible that she did strike her head. She did have some nausea and vomiting at the time. She is on aspirin and Plavix for a cardiac event as recently as last fall. She does have some chronic neck pain but otherwise, no new neurologic sympto ms. She does say she has a mild headache, but nothing severe. She presented again to the [facility] where a CT of the head reveals a larger, roughly 1 cm in greatest thickness subdur al hematoma along the right cerebral convexity and a small tentorial subdural as well. There is no significant mass effect or midline shift, and no significant brain compression. REVIEW OF SYSTEMS: A 10-point review of systems is negative other than described above in the HPI. PAST MEDICAL HISTORY: 1. Coronary artery disease. 2. Hypertension. 3. Multiple cervical spine fusion. 4. Previous fall with subdural hematoma. SOCIAL HISTORY: Patient denies tobacco, alcohol, or other drug use. FAMILY HISTORY: No family history of brain bleeding. ALLERGIES: 1. Tetracycline. 2. Lisinopril. 3. Pregabalin. 4. Promethazine. 5. Flu vaccine. 6. Zofran. HOME MEDICATIONS: 1. Allopurinol. 2. Atorvastatin. 3. Calcium carbonate. 4. Cetirizine. 5. Vitamin D. 6. Loperamide. 7. Losartan. 8. Nitroglycerin. 9. Ranolazine. 10. Docusate senna. 11. Hydromorphone. 12. Protonix. 13. Albuterol. 14. Amoxicillin. 15. Methocarbamol. 16. Reglan. 17. Scopolamine. PHYSICAL EXAM: Currently, she is afebrile with normal stable vital signs. She is awake, alert, and oriented x3. The speech is clear and fluent. Her pupils are equal, round, reactive to light. Her extraocular movements are intact. Her face is symmetric. Tongue is midline. She has full 5/5 str ength in all muscle groups of the upper and lower extremities. There is no pronator drift. Deep te ndon reflexes are normal. There is no dysmetria. Her sensation appears to be intact throughout. IMAGING REVIEW: See HPI for the imaging review of the CT of the head. She also had a CT of the cer vical spine which shows anterior cervical diskectomy and fusion from C4 to C7, but no obvious fractu res and reasonable alignment. LABORATORY REVIEW: There are no new lab results from today to review. ASSESSMENT AND PLAN: The patient is an 86-year-old woman who has frequent falls, and she is on aspi rin and Plavix for her heart stents. She again fell today and had an acute subdural hematoma measur ing about a centimeter over the right cerebral convexity. There is minimal mass effect and essentia lly no shift, other than about maybe 2 or 3 mm. We had recommended reversing the Plavix as best as possible with platelet infusion and I will follow along. She should get a repeat head CT in about 6 hours. I cleared her cervical spine, as she had no tenderness and her CT scan was normal. She is fairly adamant that she would not want any surgical procedures for any reason. I told her I do not think that she needs any at this point, but if she were to decline, that she and her family should t hink quite a bit about what they would want to do. It sounds as though she would not want any surgi jose alfredo intervention at this time. We will follow along and we will follow up her next head CT. Please do not hesitate to contact us if there are any neurologic changes, or any questions or concerns. Thanks for the kind consultation. /[id number]/MODL
[2017-04-21] MEDS ORDERED: levETIRAcetam 1,000 MG in NS 100 ML IV ONE (16:00)
--- NOTE | 2017-04-21 17:32 | GHP ---
[f rep st] PREOP HISTORY AND PHYSICAL DATE OF ADMISSION: 04/21/2017 HISTORY OF PRESENT ILLNESS: The patient is an 86-year-old female who was found collapsed at home. She denies any loss of consciousness. She just felt weak, and sat down herself, and then lied down. Denies any head trauma, although someone at the scene thought she possibly hit her head. Workup i n the ER reveals a 13 mm right subdural. This is complicated because she was here approximately 1 m onth ago with a small right subdural hematoma after a fall, in which she sustained a laceration to t he back of her head and had some ladonna. She is admitted at this time for observation, neurosurger y consultation, and internal medicine consultation. It is not clear to me that she had any acute ne w trauma, but she definitely has the right subdural hematoma, which is relatively asymptomatic. She complains of no real neurologic complaints, not even much of a headache. MEDICATIONS: Scopolamine, Reglan, methocarbamol, amoxicillin, albuterol, Protonix, Dilaudid, docusa te, ranolazine, and nitroglycerin, losartan, loperamide, vitamin D, cetirizine, calcium, allopurinol , atorvastatin. PAST MEDICAL HISTORY: Coronary artery disease, for which she has 2 stents within the last year, his tory of hypertension, multiple cervical spine fusions, and a previous fall with a subdural hematoma. REVIEW OF SYSTEMS: Reveals no major other medical problems on a full 10-point review of systems. S he does not smoke or use alcohol. FAMILY HISTORY: Noncontributory. ALLERGIES: Promethazine, lisinopril, tetracycline, Zofran, flu vaccine and pregabalin. PHYSICAL EXAMINATION: GENERAL: An alert, cooperative, 86-year-old female in no acute distress. ADAM SIGNS: She is afebrile. HEAD AND NECK: Reveals no signs of trauma at this point. EOMs are in tact. Pupils are normal. There are no oral lesions. Occlusion is normal. She is awake and orient ed x3. CHEST: Clear with no palpable rib fractures or tenderness. No clavicle injuries. CARDIAC: Regular rhythm without murmurs. ABDOMEN: Soft without organomegaly or tenderness. No abdominal scars. EXTREMITIES: Full range of motion. Full pulses. NEURO: Cranial nerves to be intact. Mot or is 5+ and symmetric, as is her sensation. She is alert and oriented x3. PSYCHIATRIC: Exam reve als her to be alert and oriented and appropriate. SKIN: No signs of trauma. No ecchymosis, or ski n tears, or lacerations. IMPRESSION: Subdural hematoma on the right, possibly acute, and possibly chronic from 1 month ago. PLAN: Admit for observation. Follow up CT scan. Neurosurgery consultation and internal medicine c onsultation. I think she needs to be on tele for observation, and probable cardiac evaluation, as t his episode may have been syncope rather than a significant trauma. /[id number]/MODL
[2017-04-21] MEDS ORDERED: SENNOSIDES/DOCUSATE SODIUM TAB PO PRN (19:15)
[2017-04-21] MEDS ORDERED: NON-FORMULARY NEW DRUG (Tears/Hypromellose [Natural Balance] 2 DROPS) EACHEYE PRN (19:15)
--- NOTE | 2017-04-21 21:41 | GCON ---
[f rep st] CONSULTATION HISTORY AND PHYSICAL CONSULTATION DATE OF CONSULTATION: 04/21/2017 Consultation question is evaluation of frequent falls. HISTORY OF PRESENT ILLNESS: An 86-year-old female, who presents on 04/21/2017 after a witnessed slu mping fall. The patient was brought to the emergency department for evaluation and found to have an extending subdural hematoma over the right cerebral hemisphere. Radiology comments that there is a small amount of [id number] shift. The patient was previously admitted on 03/22/2017 also with f all. In this instance thought to have head trauma. A CT was obtained at that time on admission, an d the patient was found to have a small 4 mm subdural hematoma. She was monitored with serial CT's over the course of that short hospitalization without any extension of the subdural and was discharg ed back home. The patient reports a chronic headache on the right in the right side of her neck ass ociated with spinal fusion. She reports that has been stable. She developed a new headache that kimberly hernandez describes over the last couple 24 hours to 48 hours preceding her slumping fall. The fall was wit nessed by her demented sister, who reports that she did not hit her head, but instead slumped down f rom her walker underneath the chair. The patient reports that is consistent with her experience. A gain, the right-sided headache seemed to preceding the slumping lethargy that she experienced. She denied any chest pain, any palpitations, any abdominal discomfort, any diarrhea, dysuria, hematuria, or lower extremity edema. PAST MEDICAL HISTORY: 1. Coronary artery disease status post LAD stenting in 2008. She was last catheterized 2012 withou t significant progression of her stenoses. 2. Recent subdural hematoma. 3. Diabetes type 2. 4. Hypertension. 5. Gout. 6. Osteoporosis. 7. Cataracts. 8. History of TIA. 9. Duodenal ulcer. 10. Spinal stenosis. SOCIAL HISTORY: She lives at assisted living next door to her sister, does not smoke, drink alcohol , or use illicit drugs. FAMILY HISTORY: Significant for cardiac disease and strokes in multiple primary family members. ADVANCED DIRECTIVES: The patient is do not resuscitate, is very clear in her wishes that she does n ot want advanced procedures either. REVIEW OF SYSTEMS: A 10-point review of systems is negative with the exception of that reported in the HPI. PHYSICAL EXAMINATION: VITAL SIGNS: Blood pressure 154/57, heart rate 64, respiratory rate is 23, s aturating 96% on room air, 36.1. GENERAL: This is a sweet, elderly female, lying flat in bed. LAUREN NT: Notable for moist mucous membranes. Eye exam is negative for any icterus. CARDIAC: Patient i s regular rate and rhythm. She has a quiet systolic murmur heard best at the left upper sternal bor kyle. PULMONARY: Clear to auscultation bilaterally. GASTROINTESTINAL: Positive bowel sounds. Abd omen is soft and nontender. MUSCULOSKELETAL: Negative for any lower extremity edema. SKIN: Negat kendall for any rashes. NEUROLOGIC: She is alert and oriented x3. PSYCHIATRIC: She is pleasant and c ooperative on interview and examination. LABORATORY DATA: CT of the head, which I personally reviewed and interpreted, does show a large sub dural hematoma on the right. LABORATORY: White count 5.5, hematocrit 40.7, platelets of 261. Sodium last checked is 133. Blood glucose on admission is 207. ASSESSMENT AND PLAN: This is an 86-year-old female with falls and enlarging subdural hematoma. 1. Recurrent falls. It is certainly appropriate concern for cardiac workup to rule out any possibl e dysrhythmias or valvular outflow obstructions that could be contributing. Reviewing the patient's laboratories, I am additionally concerned that she may have progressing hyponatremia, which has yehuda ar documented association with gait instability and falls. Will order a BMP and stop hypotonic flui ds until we can verify what her presenting serum sodium is. We can monitor on telemetry as well and check a transthoracic echocardiogram, which are all noninvasive and should provide sufficient infor mation about arrhythmias and cardiac function. 2. Subdural hematoma. This is being managed by Neurosurgery. Patient has been started on Keppra. We are holding her aspirin and Plavix outpatient medications. She will have serial CT and neurolog ic examinations. 3. Coronary artery disease. Patient does not have active chest pain or cardiac symptoms. Agree wi th continuing her statin. As above, will hold her aspirin and Plavix at this time secondary to the risks associated with acute subdural hematoma. 4. Hypertension. Holding the patient's losartan acutely. Can re-initiate if her blood pressure st ays stable overnight. 5. Gastroesophageal reflux disease. Will continue her daily pantoprazole. 6. Prophylaxis contraindicated in the setting of acute subdural hematoma. 7. Diet. She has been cleared for a regular diet. 8. Disposition. I expect greater than 2 midnights, as the patient is quite elderly presenting with a progressive subdural hematoma requiring close neurologic monitoring and workup for falls. I have discussed the case with Dr. Crain from Trauma Surgery. Thank you for the consultation. We will follow along. /[id number]/MODL
[2017-04-21] MEDS: ACETAMINOPHEN 325 MG TAB PO PRN (21:45)
[2017-04-21] MEDS ORDERED: ALBUTEROL 200 PUFFS/18 GM MDI IH PRN (22:00)
[2017-04-21] MEDS ORDERED: ALBUTEROL 60 PUFFS/8 GM MDI IH SCH (22:00)
[2017-04-22 06:21] LABS: ANION GAP 9 mEq/L (8-16); CALCIUM 8.9 mg/dL (8.5-10.4); CARBON DIOXIDE 23 mEq/l (22-31); CHLORIDE 104 mEq/L (97-110); CREATININE 0.8 mg/dL (0.6-1.0); GLOMERULAR FILTRATION RATE > 60; GLUCOSE 110 mg/dL (70-100); SODIUM 136 mEq/L (134-144)
[2017-04-22] MEDS: ACETAMINOPHEN 325 MG TAB PO PRN ×2 (08:29→20:10)
--- NOTE | 2017-04-22 09:12 | NEUSURGPN ---
Assessment/Plan: A: 86 yo F with right SDH 10mm, neuro intact P: Repeat HCT done yesterday was stable Neuro intact PT/OT Q4 neuros OK to transfer to floor Patient does not want surgery at this time D/w Dr Coley NS will see again tomorrow. Will need f/u in 3 weeks as outpatient with repeat HCT Call NS with any neuro changes Subjective: Pt resting in bed, has left sided headache that is at her baseline level Objective: AAOx3 NAD VSS MAEx4 No deficits No facial droop CN II-XII intact +LT Urinary Catheter in Place: No - Physician Discussed Patient with : Vianca Neurosurgery Physical Exam - Vitals, I&O, Labs I and O 04/21/17 04/22/17 04/23/17 05:59 05:59 05:59 Intake Total 520 Output Total 425 Balance 95 Weight 61.4 kg Intake: Oral (ml) 270 IV Infused (ml) 250 Tranexamic Acid 1,000 mg 250 In Ns 500 ml @ 63.75 mls/ hr IV ONCE ONE Rx#: [id number] Output: Urine (ml) 425 Toilet 425 Other: Intake Quantity Yes Sufficient Number of Voids 1 Toilet 2 Vital Signs Temp Pulse Resp BP Pulse Ox 36.5 C 56 L 20 137/56 H 98 04/22/17 08:00 04/22/17 08:00 04/22/17 08:00 04/22/17 08:00 04/22/17 08:00 Laboratory Results 04/22/17 05:38 ICD10 Worksheet Patient Problems: Problems Problem Status Onset SDH (subdural hematoma) Acute Benign hypertension Active CAD - Coronary arteriosclerosis Active Hyperlipidemia Active Placement of stent in coronary artery Active Dizziness Acute Fall Acute Headache Acute Nausea & vomiting Acute
[2017-04-22] MEDS: PANTOPRAZOLE SODIUM 40 MG TAB PO SCH (10:23)
[2017-04-22] MEDS: CHOLECALCIFEROL VIT D3 1,000 UNITS TAB PO SCH (10:23)
[2017-04-22] MEDS: TEARS/DEXTRAN 70/HYPROMELLOSE 15 ML OPHT.BTL EACHEYE PRN (10:27)
[2017-04-22] MEDS: ADVAIR IN SCH (11:35)
--- NOTE | 2017-04-22 11:39 | TRAUMAPN ---
- Problem/Surgery Performed (1) Dizziness Assessment/Plan: 04/22/2017 PAD#1 No dizziness today - still bradycardic ( low 50's) (2) Fall Assessment/Plan: Etiology of fall remains unclear. It does not sound like a drop attack. She has not exhibited any new neurologic findings. It did occur about 1 hour after her morning meds that do include antihypertensive medication but did occur after her morning walk. Antihypertensive medication combined with her baseline bradycardia would seem suspect but feeling well during walk makes that less likely. Ectopy has not been seen. Patient not interested in pacemaker. Qualifiers: Encounter type: subsequent encounter Qualified Code(s): W19.XXXD - Unspecified fall, subsequent encounter (3) CAD - Coronary arteriosclerosis Assessment/Plan: History of IL last and follow up event in July- evaluation/ treatment declined as DNR - Hx of stents in past. Apparently Echo showed good wall motion today but formal interpretation pending (4) Headache Assessment/Plan: Has a chronic left headache tx'd with tylenol. Known to have left facial droop in mornings but resolves by afternoon. Droop present this AM. Qualifiers: Headache type: unspecified Headache chronicity pattern: chronic headache Intractability: intractable Qualified Code(s): R51 - Headache (5) SDH (subdural hematoma) Assessment/Plan: second subdural within 30 days. Unclear if this occurred after event but may have predated it. Has chronic left facial droop in AM ( present today) that usually clears by afternoon according to daughter. No new neurologic findings today. (6) Urinary frequency Assessment/Plan: She complains of urinary frequency and had seen PCP as out patient earlier this week. Urine culture has 5 colonies of non-lactose fermenters. Did recieve DDAVP in ER with some success. DI due to head injury seems unlikely but will check electrolytes, urine/serum osmol and urine output. Assessment/Plan: Stable for transfer out of ICU. Etiology of collapse still unclear. Will transfer to hospitalist service. Dr Horner accepts. Subjective: no complaints Objective: Vital Signs Temp Pulse Resp BP Pulse Ox 36.5 C 56 L 20 136/53 H 95 04/22/17 08:00 04/22/17 10:00 04/22/17 10:00 04/22/17 10:04/22/17 10:00 Laboratory Results 04/22/17 05:38 04/21/17 04/22/17 04/23/17 05:59 05:59 05:59 Intake Total 520 Output Total 425 Balance 95 Physical Exam - Physical Exam General Appearance: WD/WN, alert, no apparent distress EENT: PERRL/EOMI Neck: non-tender, full range of motion, supple Respiratory: chest non-tender, lungs clear, normal breath sounds Cardiac/Chest: normal peripheral pulses, bradycardia Abdomen: non-tender, soft Pelvic Exam: deferred Rectal: deferred Skin: normal color, warm/dry Neuro/Psych: no motor/sensory deficits, alert, normal mood/affect, oriented x 3 , facial droop (slight left facial droop) Time Spent w/Patient (minutes): 35
--- NOTE | 2017-04-22 11:50 | ECHO ---
[id number] + + [address] : : [place] [address] : : [phone] + + Adult Echocardiographic Report + -+ :Name: MONICA SOUZA RStudy Date: 04/22/2017 09:30 AM : : Hospital Admission Number: [id number] Location: 25 3: :: 1930 Gender: Female Height: 59 in : :Age: 86 yrs Race: Weight: 135 lb : :Reason For Study: Eval LV Fx : : BSA: 1.6 meters2 : :History: Syncope : + -+ MMode/2D Measurements \T\ Calculations IVSd: 0.94 cm LVIDd: 4.6 cm FS: 32.4 % Ao root diam: 3.0 cm LVPWd: 1.2 cm LVIDs: 3.1 cm EDV(Teich): 97.3 ml ACS: 2.0 cm ESV(Teich): 38.1 ml EF(Teich): 60.8 % Normal Measurement Values: + + :LVIDd (3.5-5.7cm) IVSd (0.6-1.1cm) LVPWd (0.6-1.1cm) Aortic Root (2.0-3.7cm)Left Atrium (1.5-4.0cm): :LV Vol(d) (76-115ml) LV Vol(s) (29-48ml) Ejec Fraction (50-65%)PV Robb (0.6- 1.2m/s) TV Robb (0.4-1.0m/s) : :MV E Robb (0.8-1.0m/s)MV A Robb (0.3-1.0m/s)LVOT Robb (0.7-1.2m/s) Asc Ao Robb ( 0.9-1.8m/s) : + + Doppler Measurements \T\ Calculations MV E max robb: Ao V2 max: LV V1 max: TR max robb: 114.5 cm/sec 149.3 cm/sec 155.0 cm/sec 339.3 cm/sec MV A max robb: Ao max PG: LV V1 max PG: TR max P.7 cm/sec 8.9 mmHg 9.6 mmHg 46.1 mmHg MV E/A: 0.81 RAP systole: 5.0 mmHg RVSP(TR): 51.1 mmHg Left Ventricle The left ventricle is normal in size. There is mild concentric left ventricular hypertrophy. The left ventricular ejection fraction is normal. There is Doppler evidence for diastolic dysfunction. Ejection Fraction = 61%. The left ventricular ejection fraction is calculated at 60.8 %. No regional wall motion abnormalities noted. Right Ventricle The right ventricle is normal size. The right ventricular systolic function is normal. Atria The left atrial size is normal. Right atrial size is normal. Mitral Valve The mitral valve is normal in structure and function. There is no evidence of mitral valve prolapse. There is no mitral valve stenosis. There is no mitral regurgitation noted. Tricuspid Valve Normal tricuspid valve. There is mild tricuspid regurgitation. Right ventricular systolic pressure is 51mmHg. There is Doppler evidence for mild to moderate pulmonary hypertension. Aortic Valve The aortic valve is normal in structure and function. The aortic valve is trileaflet. There is no aortic stenosis. There is no aortic insufficiency. Pulmonic Valve The pulmonic valve is normal in structure and function. There is no pulmonic valvular regurgitation. Great Vessels The aortic root is normal size. Pericardium/Pleural Bradycardia. Small pericardial effusion. Conclusion A complete two-dimensional transthoracic echocardiogram was performed (2D, M-mode, Doppler and color flow Doppler). (1) Left ventricular systolic ejection fraction was normal (60%) - normal wall motion (2) Mild concentric left ventricular hypertrophy (3) Diastolic dysfunction was present (4) Normal atrial dimensions (5) Normal right ventriuclar size and function (6) Grossly normal mitral valve\E\ (7) Trileaflet aortic valve without sclerosis or insufficiency (8) Mild tricuspid regurgitation - RVSP was estimated to be 50 mm HG (9) Grossly normal pulmonic valve (10) Small pericardial effusion (no tamponade) (10) In comparison to prior echocardiogram from 2010, no changes have been noted Final Reading Physician: Sharan Adams, Melectronically signed on 04/22/2017 11:48 AM Ordering Physician: Salima Horner Performed By: Osito Mishra, MARIA GUADALUPECS
[2017-04-22 12:40] LABS: SODIUM 137 mEq/L (134-144)
--- NOTE | 2017-04-22 14:48 | HOSPPROG ---
Hospitalist Progress Note Assessment/Plan: # Acute subdural hematoma- CT head (personally reviewed and interpreted)large right-sided subdural hematoma from previous - mild left of [id number] shift Neurologic exam remains stable this morning- headache on right controlled with Tylenol alone Oxygen saturations 95% on room air - CT imaging overnight stable - continue neuro examination is - stable for transfer to [address] [place] [address] - PT OT - continue holding blood thinners # Frequent falls - patient is stable on telemetry overnight brief bradycardia otherwise sinus at normal rates Echo (reviewed) stable ejection fraction and no significant valvular abnormalities Sodium 136 this a.m. - attempt at sodium to ER labs - no obvious cause for falls - PT/OT - check vitamin D # DM2 -the blood sugars 110-250 - continue sliding scale insulin # hypertension- systolic blood pressures in the 130s to 140s - continue holding home meds # prophylaxis- Lovenox contraindicated in the setting of subdural hematoma # diet regular # disposition greater than 2 midnights would like to monitor the patient on normal oral intake to verify she can hold her sodiums in the 130s I have discussed case with the RN need PT OT evaluations for safe disposition recommendations Subjective: Headache controlled with Tylenol Objective: Vital Signs Temp Pulse Resp BP Pulse Ox 36.9 C 55 L 14 135/64 H 95 04/22/17 12:00 04/22/17 12:00 04/22/17 12:00 04/22/17 12:00 04/22/17 12:00 Laboratory Results 04/22/17 12:00 04/21/17 04/22/17 04/23/17 05:59 05:59 05:59 Intake Total 520 Output Total 425 200 Balance 95 -200 - Physical Exam Constitutional: obese Eyes: anicteric sclera Ears, Nose, Mouth, Throat: moist mucous membranes Cardiovascular: regular rate and rhythym, bradycardia Respiratory: no respiratory distress Gastrointestinal: normoactive bowel sounds, soft, non-tender abdomen Genitourinary: no bladder fullness Skin: warm, normal color Musculoskeletal: No asymmetric calves Neurologic: AAOx3 Psychiatric: interacting appropriately Lymph, Heme, Immunologic: no cervical LAD ICD10 Worksheet Patient Problems: Problems Problem Status Onset SDH (subdural hematoma) Acute Urinary frequency Acute Benign hypertension Active CAD - Coronary arteriosclerosis Active Hyperlipidemia Active Placement of stent in coronary artery Active Dizziness Acute Fall Acute Headache Acute Nausea & vomiting Acute
--- NOTE | 2017-04-22 15:43 | ASMTCMCOM ---
CM Note CM Note Notes: Spoke with patient's daughter, Lina who is concerned patient have 3 overnights in the event SNF rehab is recommended. Lina and patient would like to take an active role in the d/c planning. Lina informed me [facility] where patient lives has a broken elevator. They have ordered the part but the residents are having to remain in their apartments, while the staff is bringing them their meals. Lina does not want her mother to return there until the elevator is fixed. ( there is only 1 elevator and her mother lives on the second floor) PT/OT/SPL have been ordered. Awaiting therapies to determine patient's d/c needs. Patient is going to be moved to the floor later today. Lina would like to speak with the CM on the new floor when the patient is moved. CM will follow. Date Signed: 04/22/2017 03:42 PM Electronically Signed By:Suellen Badillo
[2017-04-22 16:32] LABS: SODIUM 133 mEq/L (134-144)
[2017-04-22] MEDS: ALLOPURINOL 300 MG TAB PO SCH (18:25)
[2017-04-22] MEDS: ATORVASTATIN CALCIUM 10 MG TAB PO SCH (18:26)
[2017-04-22] MEDS ORDERED: NON-FORMULARY NEW DRUG (Fluticasone/Salmeterol [Advair Hfa 115-21 Mcg Inhaler] 2 PUFFS) IN SCH (21:00)
[2017-04-23] MEDS: ACETAMINOPHEN 325 MG TAB PO PRN ×6 (00:34→21:46)
[2017-04-23] MEDS: PANTOPRAZOLE SODIUM 40 MG TAB PO SCH (09:47)
[2017-04-23] MEDS: CHOLECALCIFEROL VIT D3 1,000 UNITS TAB PO SCH (09:48)
--- NOTE | 2017-04-23 10:21 | HOSPPROG ---
Hospitalist Progress Note Assessment/Plan: patient is an 86 year old female who presented to the emergency room after having a fall. She was found to have an extending subdural hematoma over the right cerebral hemisphere. The patient complains of a chronic headache. Today is my 1st encounter with the patient. Chart reviewed. Reviewed her care with Dr Rich (neurosurgeon). * Acute subdural hematoma CT of her head shows a large right-sided subdural hematoma having persistent headaches but at a "2" on a scale of 1-10 family doesn't want any interventions if this should worsen *neck pain mainly around r trapezius area trial of Lidoderm patch * hypertension blood pressure is elevated this morning at 160/68 neurosurgery is recommending to keep the systolic less than 140 will re-initiate her Cozaar but very small dose to see how she responds pre * gait instability with frequent falls echo shows a stable EF with no significant valvular abnormalities * diabetes type 2 on sliding scale * DVT prophylaxis Lovenox contraindicated due to the above *Plan : cont supportive care/patient's daughter is concern her mom is more confused/ Dr Rich to order further imaging Subjective: Fe says her right neck is what is hurting her the most. Objective: Vital Signs Temp Pulse Resp BP Pulse Ox 36.5 C 50 L 21 H 168/68 H 93 04/23/17 07:45 04/23/17 07:45 04/23/17 07:45 04/23/17 07:45 04/23/17 07:45 Laboratory Results 04/22/17 16:05 04/22/17 04/23/17 04/24/17 05:59 05:59 05:59 Intake Total 520 1150 400 Output Total 425 825 50 Balance 95 325 350 - Physical Exam Constitutional: uncomfortable, No not in pain Eyes: PERRL Ears, Nose, Mouth, Throat: hearing normal Cardiovascular: regular rate and rhythym Respiratory: no respiratory distress Skin: warm Neurologic: AAOx3 Psychiatric: interacting appropriately, not anxious ICD10 Worksheet Patient Problems: Problems Problem Status Onset SDH (subdural hematoma) Acute Urinary frequency Acute Benign hypertension Active CAD - Coronary arteriosclerosis Active Hyperlipidemia Active Placement of stent in coronary artery Active Dizziness Acute Fall Acute Headache Acute Nausea & vomiting Acute
[2017-04-23] MEDS: ADVAIR IN SCH ×3 (11:22→21:48)
[2017-04-23] MEDS: LOSARTAN POTASSIUM 25 MG TAB PO SCH (11:35)
--- NOTE | 2017-04-23 12:45 | SOAPPROG ---
SOAP Progress Note Assessment/Plan: Assessment: Susana continues to not want any surgery for the sdh. we repeated her ct to look for worsening sdh because she felt worse today and the CT was stable She had a CT of the Cspine when she was admitted and this did not show any acute problems in the cspine. Continue to offer supportive care. There is no need for surgery currently. Plan: 04/23/17 12:43 Subjective: Complained of worsening LOVELL this morning and NEW onset of neck pain as well. Objective: Vital Signs Temp Pulse Resp BP Pulse Ox 36.5 C 57 L 22 H 172/74 H 96 04/23/17 07:45 04/23/17 11:30 04/23/17 11:30 04/23/17 11:35 04/23/17 11:30 Laboratory Results 04/22/17 16:05 04/22/17 04/23/17 04/24/17 05:59 05:59 05:59 Intake Total 520 1150 400 Output Total 425 825 50 Balance 95 325 350 GCS 15. Good strength. New CT today is stable SDH. ICD10 Worksheet Patient Problems: Problems Problem Status Onset SDH (subdural hematoma) Acute Urinary frequency Acute Benign hypertension Active CAD - Coronary arteriosclerosis Active Hyperlipidemia Active Placement of stent in coronary artery Active Dizziness Acute Fall Acute Headache Acute Nausea & vomiting Acute
[2017-04-23] MEDS: LIDOCAINE 5% 1 EA PATCH TD SCH (13:48)
[2017-04-23] MEDS: METHOCARBAMOL 750 MG TAB PO PRN (16:15)
[2017-04-23] MEDS: ALLOPURINOL 300 MG TAB PO SCH (17:37)
[2017-04-23] MEDS: ATORVASTATIN CALCIUM 10 MG TAB PO SCH (17:37)
[2017-04-23] MEDS ORDERED: hydrALAZINE 20 MG/ML VIAL IVP PRN (18:50)
[2017-04-23] MEDS ORDERED: amLODIPine BESYLATE 5 MG TAB PO ONE (18:59)
[2017-04-23] MEDS: PATCH REMOVAL 1 EA PATCH TD SCH (21:51)
[2017-04-24] MEDS: METHOCARBAMOL 750 MG TAB PO PRN ×3 (00:27→22:24)
[2017-04-24 05:11] LABS: % IMMATURE GRANULYOCYTES 0.6 % (0.0-1.1); ABSOLUTE IMMATURE GRANULOCYTES 0.04 10^3/uL (0.00-0.10); ADD DIFF? NO; ADD MORPH? NO; ADD SCAN? NO; ATYPICAL LYMPHOCYTE FLAG 0 (0-99); FRAGMENT RBC FLAG 0 (0-99); HEMATOCRIT 38.5 % (38.0-47.0); HEMOGLOBIN 13.3 g/dL (12.6-16.3); LEFT SHIFT FLG 0 (0-99); LIPEMIA HEMOLYSIS FLAG 90 (0-99); MEAN CELL HEMOGLOBIN 34.6 pg (27.9-34.1); MEAN CELL HEMOGLOBIN CONCENTR. 34.5 g/dL (32.4-36.7); MEAN CELL VOLUME 100.3 fL (81.5-99.8); MEAN PLATELET VOLUME 10.2 fL (8.7-11.7); PLATELET CLUMPS FLAG 0 (0-99); PLATELET COUNT 197 10^3/uL (150-400); RED BLOOD CELL COUNT 3.84 10^6/uL (4.18-5.33); RED CELL DISTRIBUTION WIDTH 11.7 % (11.5-15.2)
[2017-04-24 05:24] LABS: ANION GAP 10 mEq/L (8-16); CALCIUM 8.5 mg/dL (8.5-10.4); CARBON DIOXIDE 21 mEq/l (22-31); CHLORIDE 96 mEq/L (97-110); CREATININE 0.7 mg/dL (0.6-1.0); GLOMERULAR FILTRATION RATE > 60; GLUCOSE 124 mg/dL (70-100); POTASSIUM 3.5 mEq/L (3.5-5.2); SODIUM 127 mEq/L (134-144)
[2017-04-24] MEDS: PANTOPRAZOLE SODIUM 40 MG TAB PO SCH (07:45)
[2017-04-24] MEDS: ACETAMINOPHEN 325 MG TAB PO PRN ×3 (07:46→22:24)
[2017-04-24] MEDS: LOSARTAN POTASSIUM 25 MG TAB PO SCH (07:46)
[2017-04-24] MEDS: CHOLECALCIFEROL VIT D3 1,000 UNITS TAB PO SCH (07:46)
[2017-04-24] MEDS: LIDOCAINE 5% 1 EA PATCH TD SCH (07:49)
--- NOTE | 2017-04-24 11:07 | HOSPPROG ---
Hospitalist Progress Note Assessment/Plan: patient is an 86 year old female who presented to the emergency room after having a fall. She was found to have an extending subdural hematoma over the right cerebral hemisphere. The patient complains of a chronic headache. * Acute subdural hematoma CT of her head shows a large right-sided subdural hematoma no headache today family doesn't want any interventions if this should worsen repeat CT scan yesterday no sig change tranexamic acid ordered by Dr Rich TIHemanth to help treat the above *neck pain mainly around r trapezius area much improve with Lidoderm patch and Robaxin *hyponatremia na 127/ hasn't been eating well/now is * hypertension blood pressure is elevated this morning at 112/68 neurosurgery is recommending to keep the systolic less than 140 re-initiated her Cozaar but 1/2 dose to see how she responds * gait instability with frequent falls echo shows a stable EF with no significant valvular abnormalities * diabetes type 2 on sliding scale * DVT prophylaxis Lovenox contraindicated due to the above *Plan : resume her zyrtec, tranexamic acid tid, recommending SNF to monitor her gait/ will discuss w CM, should be ready for dc tomorrow/recheck Na level Subjective: Fe is feeling well, no complaints. Right neck area w less pain. Objective: Vital Signs Temp Pulse Resp BP Pulse Ox 36.7 C 75 19 112/68 93 04/24/17 09:42 04/24/17 09:42 04/24/17 09:42 04/24/17 09:42 04/24/17 09:42 Laboratory Results 04/24/17 04:28 04/24/17 04:28 04/23/17 04/24/17 04/25/17 05:59 05:59 05:59 Intake Total 1150 1100 420 Output Total 825 1400 300 Balance 325 -300 120 - Physical Exam Constitutional: no apparent distress, appears nourished, No not in pain Eyes: PERRL Ears, Nose, Mouth, Throat: hearing normal Cardiovascular: regular rate and rhythym Respiratory: no respiratory distress Skin: warm Musculoskeletal: generalized weakness Neurologic: AAOx3 Psychiatric: interacting appropriately, not anxious ICD10 Worksheet Patient Problems: Problems Problem Status Onset SDH (subdural hematoma) Acute Urinary frequency Acute Benign hypertension Active CAD - Coronary arteriosclerosis Active Hyperlipidemia Active Placement of stent in coronary artery Active Dizziness Acute Fall Acute Headache Acute Nausea & vomiting Acute
--- NOTE | 2017-04-24 11:37 | SOAPPROG ---
[facility] Progress Note Assessment/Plan: Assessment: Susana now is considering treatment for the sdh. We would suggest at this point medical managment with Tranexamic acid 650mg po TID. This gives her a reasonable chance to avoid surgery but I have counselled the family that this could possibly create problems for her heart or increase her risk of a stroke. These risks, in my view, however are outweighed by the fact that the TXA gives her a chance to avoid a craniotomy. Plan: 04/23/17 12:43 04/24/17 11:33 Subjective: Doing a bit better from a pain perspective today but confused. Objective: Vital Signs Temp Pulse Resp BP Pulse Ox 36.7 C 75 19 112/68 93 04/24/17 09:42 04/24/17 09:42 04/24/17 09:42 04/24/17 09:42 04/24/17 09:42 Laboratory Results 04/24/17 04:28 04/24/17 04:28 04/23/17 04/24/17 04/25/17 05:59 05:59 05:59 Intake Total 1150 1100 420 Output Total 825 1400 300 Balance 325 -300 120 Sitting in a chair conversant but mild confusion ct yesterday was relatively stable. ICD10 Worksheet Patient Problems: Problems Problem Status Onset SDH (subdural hematoma) Acute Urinary frequency Acute Benign hypertension Active CAD - Coronary arteriosclerosis Active Hyperlipidemia Active Placement of stent in coronary artery Active Dizziness Acute Fall Acute Headache Acute Nausea & vomiting Acute
[2017-04-24] MEDS ORDERED: LOSARTAN POTASSIUM 25 MG TAB PO SCH (13:50)
[2017-04-24] MEDS: CETIRIZINE 10 MG TAB PO SCH (14:00)
[2017-04-24] MEDS: TRANEXAMIC ACID 650 MG TAB PO SCH ×2 (15:18→22:22)
--- NOTE | 2017-04-24 15:37 | ASMTCMCOM ---
CM Note CM Note Notes: Pt's dtr Lina chose [facility] as 1st choice and [facility] as 2nd. [facility] has accepted pt. [facility] has not responded. Paper PASRR in chart if [facility] accepts. Plan is for DC tomorrow so [facility] likely b/c tomorrow is a holiday and [facility] likely will not have admissions coverage. C/M will continue to follow. Date Signed: 04/24/2017 03:37 PM Electronically Signed By:Dee Dee Gilliland
[2017-04-24] MEDS: ADVAIR IN SCH ×2 (15:39→20:13)
[2017-04-24] MEDS: ALLOPURINOL 300 MG TAB PO SCH (17:40)
[2017-04-24] MEDS: ATORVASTATIN CALCIUM 10 MG TAB PO SCH (17:41)
[2017-04-24] MEDS: PATCH REMOVAL 1 EA PATCH TD SCH (22:46)
[2017-04-25] MEDS: ACETAMINOPHEN 325 MG TAB PO PRN (04:50)
[2017-04-25 05:13] LABS: ANION GAP 10 mEq/L (8-16); CALCIUM 8.6 mg/dL (8.5-10.4); CARBON DIOXIDE 22 mEq/l (22-31); CHLORIDE 100 mEq/L (97-110); CREATININE 0.8 mg/dL (0.6-1.0); GLOMERULAR FILTRATION RATE > 60; GLUCOSE 126 mg/dL (70-100); POTASSIUM 3.7 mEq/L (3.5-5.2); SODIUM 132 mEq/L (134-144)
[2017-04-25 08:33] VITALS: BP 119/77; TEMP 97.6
[2017-04-25] MEDS ORDERED: LOSARTAN POTASSIUM 25 MG TAB PO SCH (08:44)
[2017-04-25] MEDS: PANTOPRAZOLE SODIUM 40 MG TAB PO SCH (08:48)
[2017-04-25] MEDS: METHOCARBAMOL 750 MG TAB PO PRN (08:48)
[2017-04-25] MEDS: CHOLECALCIFEROL VIT D3 1,000 UNITS TAB PO SCH (08:48)
[2017-04-25] MEDS: CETIRIZINE 10 MG TAB PO SCH (08:48)
[2017-04-25] MEDS: TRANEXAMIC ACID 650 MG TAB PO SCH (08:56)
[2017-04-25] MEDS ORDERED: LOSARTAN POTASSIUM 50 MG TAB PO SCH (09:00)
[2017-04-25] MEDS ORDERED: LOSARTAN POTASSIUM 25 MG TAB PO ONE (09:45)
--- NOTE | 2017-04-25 10:05 | SOAPPROG ---
[facility] Progress Note Assessment/Plan: Assessment: Susana now is considering treatment for the sdh. We would suggest at this point medical managment with Tranexamic acid 650mg po TID. This gives her a reasonable chance to avoid surgery but I have counselled the family that this could possibly create problems for her heart or increase her risk of a stroke. These risks, in my view, however are outweighed by the fact that the TXA gives her a chance to avoid a craniotomy. We have nothing more to add at this point but we do want to see her back in the office in 2-4 weeks with a new CT head without. My office will set that up for her. She believes she is going to rehab today which i support. I did not have an opinon about her right eye which had some mild swelling this morning. Plan: 04/23/17 12:43 04/24/17 11:33 04/25/17 10:04 Subjective: About the same as yesterday. Polyuria overnight. Right eye slightly puffy. Conversant. Sitting in a chair. Objective: Vital Signs Temp Pulse Resp BP Pulse Ox 36.4 C 68 20 119/77 95 04/25/17 08:00 04/25/17 08:00 04/25/17 08:00 04/25/17 08:00 04/25/17 08:00 Laboratory Results 04/24/17 04:28 04/25/17 04:10 04/24/17 04/25/17 04/26/17 05:59 05:59 05:59 Intake Total 1100 1270 Output Total 1400 700 Balance -300 570 GCS 15 although very mild confusion ICD10 Worksheet Patient Problems: Problems Problem Status Onset SDH (subdural hematoma) Acute Urinary frequency Acute Benign hypertension Active CAD - Coronary arteriosclerosis Active Hyperlipidemia Active Placement of stent in coronary artery Active Dizziness Acute Fall Acute Headache Acute Nausea & vomiting Acute
[2017-04-25] MEDS: LIDOCAINE 5% 1 EA PATCH TD SCH (11:06)
[2017-04-25] MEDS: TEARS/DEXTRAN 70/HYPROMELLOSE 15 ML OPHT.BTL EACHEYE PRN (11:07)
[2017-04-25] MEDS: ADVAIR IN SCH (11:25)
--- NOTE | 2017-04-25 11:30 | PDIAF ---
- Diagnosis Diagnosis: SDH, chronic CAD, HTN Code Status: Do Not Resuscitate - Medication Management Discharge Medications: Medications to Continue on Transfer Allopurinol [Allopurinol 300 MG (RX)] 150 mg PO DAILY18 10/24/15 [Last Taken ] Atorvastatin Calcium [Lipitor 10 mg (*)] 10 mg PO DAILY18 10/24/15 [Last Taken 04/20/17] Calcium Carbonate [Tums 500MG (*)] 500 mg PO TID PRN 10/24/15 [Last Taken Unknown] Cetirizine HCl [Zyrtec] 10 mg PO DAILY PRN 10/24/15 [Last Taken 10/24/15] Cholecalciferol Vit D3 [Vitamin D3 (*)] 1,000 units PO DAILY 10/24/15 [Last Taken 04/21/17] D-Methorphan Hb/P-Ephed HCl [Tussin Cough & Cold Liquid] 10 ml PO Q4 PRN [Last Taken Unknown] Herbals/Supplements -Info Only 1 ea PO DAILY 10/24/15 [Last Taken Unknown] Loperamide HCl [Imodium 2 mg (*)] 4 mg PO Q8HRS PRN 10/24/15 [Last Taken Unknown ] Losartan Potassium [Cozaar 50 mg (*)] 50 mg PO DAILY 10/24/15 [Last Taken ] Nitroglycerin [Nitrostat 0.4 mg (*)] 0.4 mg SL PRN PRN 10/24/15 [Last Taken Unknown] Sennosides/Docusate Sodium [Senokot-S] 1 each PO DAILY PRN 10/24/15 [Last Taken Unknown] HYDROmorphone HCL [Dilaudid 2 mg (*)] 2 mg PO Q4H PRN #60 tab 10/29/15 [Last Taken Unknown] Pantoprazole Sodium [Protonix 40mg (*)] 40 mg PO DAILY #90 tab 10/29/15 [Last Taken 04/21/17] Acetaminophen [Tylenol 325mg (*)] 325 - 650 mg PO Q4HRS PRN #0 tab 03/22/17 [ Last Taken 04/21/17] Albuterol [Proventil Inhaler HFA (*)] 2 puffs IH Q4HRS 03/22/17 [Last Taken Unknown] Amoxicillin 2,000 mg PO DAILY PRN 03/22/17 [Last Taken Unknown] Methocarbamol [Robaxin 750 mg (*)] 375 mg PO Q4HRS PRN 03/22/17 [Last Taken Unknown] Metoclopramide [Reglan 10 mg tab (*)] 10 mg PO Q6HRS PRN 03/22/17 [Last Taken Unknown] Prochlorperazine Maleate [Compazine 25mg supp (*)] 25 mg [place] BID PRN 03/22/17 [ Last Taken Unknown] Prochlorperazine Maleate [Compazine 5mg (*)] 5 mg PO Q6-8PRN PRN 03/22/17 [Last Taken Unknown] Scopolamine [Transderm-Scop] 1.5 mg TD Q3D PRN 03/22/17 [Last Taken Unknown] Econazole 1% [Spectazole 1%] 1 charbel TP BID 04/21/17 [Last Taken Unknown] Fluticasone/Salmeterol [Advair Hfa 115-21 Mcg Inhaler] 2 puffs IN BID 04/22/17 [ Last Taken Unknown] Lidocaine 5% [Lidoderm 5% Patch (*)] 1 ea TD DAILY patch 04/25/17 [Last Taken Unknown] Pantoprazole Sodium [Protonix 40mg (*)] 40 mg PO DAILY tab 04/25/17 [Last Taken Unknown] Patch Removal 1 ea TD DAILY21 patch 04/25/17 [Last Taken Unknown] Tears/Dextran 70/Hypromellose [Natural Balance Tears (*)] 2 drop EACHEYE TID #0 opht.btl 04/25/17 [Last Taken Unknown] Tranexamic Acid 650 mg PO TID #60 tab 04/25/17 [Last Taken Unknown] Gray Tender Antibiotics: NA Discharge Medications: Refer to the Discharge Home Medication list for PRN reason. PICC Care - Routine: N/A - Orders Services needed: Registered Nurse, Certified Bench Worker Apprentice, Physical Therapy, Occupational Therapy Oxygen: RA Diet Recommendation: no restrictions on diet Weigh Patient: weekly Elena: Not applicable Solomon Stockings Discontinue Date: while at rehab Activity/Weight Bearing Restrictions: as tolerated - Labs/Radiology BMP Date: 04/27/17 Imaging Orders: Non-contrast head CT in 2 weeks prior to appointment with Dr. Hilario Call or Fax Lab and Imaging Results to: Dr. Oconnor - Follow Up Care Current Providers and Referrals: Bhupendra Oconnor MD [Primary Care Provider] - Johnny Rich MD [Medical Doctor] - follow up in 2 weeks
--- NOTE | 2017-04-25 11:34 | ASMTCMCOM ---
CM Note CM Note Notes: Patient has been discharged and will return to her daughter's home. Asked patient about her pain needs, she is involved with an oncology pain clinic through [facility] in [place] and feels this is adequate for her needs. Patient plans to fly back to [place] on Tuesday. Date Signed: 04/25/2017 11:33 AM Electronically Signed By:Nida Edwards
[2017-04-25 12:02] VITALS: PULSE 60; RESP 18; O2SAT 94
--- NOTE | 2017-04-25 12:35 | ASMTCMCOM ---
CM Note CM Note Notes: Very Sorry the last Case Management Note 11:33 AM was reported on the wrong patient. Please disregard. Patient, Susana Patel, has been discharged to [facility]. [facility] will be setting up a wheelchair van transport. Spoke to patient's daughter who would like to ride along in van w/mother. Date Signed: 04/25/2017 12:34 PM Electronically Signed By:Nida Edwards
--- NOTE | 2017-04-25 15:54 | PDDCSUM ---
Discharge Summary Discharge Summary: DISCHARGE SUMMARY FOLLOW-UP ITEMS: Repeat electrolytes to primary care provider, repeat head CT 2 weeks DATE OF ADMISSION: 04/21/2017 DATE OF DISCHARGE: 04/25/2017 DISCHARGE DIAGNOSES: 1. Acute subdural hematoma 2. Acute hyponatremia 3. Chronic hypertension 4. Gait instability with frequent falls 5. Chronic coronary artery disease 6. Chronic neck pain CONSULTATIONS: Neurosurgery PROCEDURES / IMAGING: Head CT demonstrating subdural hematoma, echocardiogram stable ejection fraction without significant valvular abnormalities CHIEF COMPLAINT: Mechanical fall SUBJECTIVE: Patient is feeling well at time of discharge PHYSICAL EXAM ON DISCHARGE: Systolic blood pressure 120, heart rate 60, afebrile overnight, satting well on room air, alert awake oriented x3, no apparent distress, pain level 0/10, lungs are clear to auscultation bilaterally, right eye has some mild lid edema, no conjunctival injection LABS ON DISCHARGE: Serum sodium 132, creatinine 0.8, potassium 3.7 HOSPITAL COURSE BY PROBLEM: 1. Acute subdural hematoma. Secondary to head trauma, with large right-sided subdural hematoma, family patient did not want to pursue surgical intervention. Neurosurgery 7 consultation, and recommended tranexamic acid 3 times daily for 2 months and discontinuation of her anti-platelet medications. Other than mouth droop, she does not have significant neurologic deficits. She will have a follow-up with Dr. Rich and a head CT in 2 weeks. 2. Chronic neck pain. Family around the right trapezius area, symptomatically removed with Lidoderm patch and Robaxin, continue. 3. Acute hyponatremia. Secondary to poor oral intake and low solute concentration, improved with oral intake, stabilized, repeat as an outpatient. 4. Chronic hypertension. Cozaar initially held, then re-initiated safely back to home dosage. 5. Gait instability with frequent falls. With resultant traumatic head injury and subdural hematoma, requiring usp facility placement at this time. 6. Chronic coronary artery disease. Holding aspirin, Plavix, ranolazine, patient understands that her cardiovascular risk is significantly elevated off of these medications and on TXA. That being said, her risk of worsening intracranial hemorrhage on anti-platelet medication could be catastrophic, and she will remain off of her antiplatelets at this time. DISCHARGE MEDICATIONS: Please see official discharge medication reconciliation sheet in chart , TXA 3 times daily for 2 months, discontinuation of all anti-platelet medications. DISCHARGE INSTRUCTIONS: Please follow up with Dr. Rich in 2 weeks and have head CT at that time. TIME SPENT: Greater than 30 minutes were spent on direct patient care, as well as discharge planning and preparation.
--- NOTE | 2017-04-25 17:06 | ASDISCHSUM ---
Discharge Information Plan Status:SNF Medically Cleared to Leave:04/25/2017 Discharge Date:04/25/2017 02:04 PM CM D/C Disposition:Assisted Facility ADT D/C Disposition:Assisted Facility Projected Discharge Date:04/25/2017 03:00 AM Transportation at D/C:Wheelchair Van Discharge Delay Reason: Follow-Up Date:04/25/2017 03:00 AM Discharge Slot: Final Diagnosis:SDH, Chronic CAD, HTN Placement Information Referral Type:*Mcc/SNF Referral ID:[id number] Provider Name:[facility] Address 1:[address] [place] [address] [facility] Address 2: City:[place] Selection Factors: State:[place] Referral Type:*Mcc/SNF Referral ID:[id number] Provider Name:[facility] Address 1:[address] [place] [address] [facility] Address 2: City:[place] Selection Factors: State:[place] Patient Contact Information Contact Name:JULIEN Relationship:Daughter Address: City:[place] Alternate Phone: State/Zip Code:[place] Email: Financial Information Financial Class: Primary Plan Desc:MEDICARE INPATIENT Primary Plan Number:[id number] Secondary Plan Desc:M[employer] Secondary Plan Number:[id number] Assessment Information [facility] CM Progress Note CM Note CM Note Notes: Case management: Patient in ER S/P mechanical fall at her AL: [place] in [place]. Patient shares an adjoining room (studio) with her sister. Patient is accompanied by her daughter Lina who will be the patient's primary contact for her admission. Lina states that patient has been in the SNF at [facility] in the past and was in a semi-private room. This was NOT a good fit for the patient. Lina requests to be involved with any D/C planning and that she may consider looking into "[facility]" or other options IF SNF is recommended and a private room is not AV at [facility]. We also discussed the possibilty of the patient discharging home with HH pending further workup and PT/OT evaluation during pts. admission. CM will follow patient with D/C planning Date Signed: 04/21/2017 01:54 PM Electronically Signed By:January Daley [facility] CM Progress Note CM Note CM Note Notes: Spoke with patient's daughter, Lina who is concerned patient have 3 overnights in the event SNF rehab is recommended. Lina and patient would like to take an active role in the d/c planning. Lina informed me [facility] where patient lives has a broken elevator. They have ordered the part but the residents are having to remain in their apartments, while the staff is bringing them their meals. Lina does not want her mother to return there until the elevator is fixed. ( there is only 1 elevator and her mother lives on the second floor) PT/OT/SPL have been ordered. Awaiting therapies to determine patient's d/c needs. Patient is going to be moved to the floor later today. Lina would like to speak with the CM on the new floor when the patient is moved. CM will follow. Date Signed: 04/22/2017 03:42 PM Electronically Signed By:Suellen Badillo [facility] CM Progress Note CM Note CM Note Notes: Pt's dtr Lina chose [facility] as 1st choice and [facility] as 2nd. [facility] has accepted pt. [facility] has not responded. Paper PASRR in chart if [facility] accepts. Plan is for DC tomorrow so [facility] likely b/c tomorrow is a holiday and [facility] likely will not have admissions coverage. C/M will continue to follow. Date Signed: 04/24/2017 03:37 PM Electronically Signed By:Dee Dee Gilliland [facility] CM Progress Note CM Note CM Note Notes: Patient has been discharged and will return to her daughter's home. Asked patient about her pain needs, she is involved with an oncology pain clinic through [facility] in [place] and feels this is adequate for her needs. Patient plans to fly back to [place] on Tuesday. Date Signed: 04/25/2017 11:33 AM Electronically Signed By:Nida Edwards [facility] CM Progress Note CM Note CM Note Notes: Very Sorry the last Case Management Note 11:33 AM was reported on the wrong patient. Please disregard. Patient, Susana Patel, has been discharged to [facility]. [facility] will be setting up a wheelchair van transport. Spoke to patient's daughter who would like to ride along in van w/mother. Date Signed: 04/25/2017 12:34 PM Electronically Signed By:Nida Edwards Intervention Information Intervention Type:*IM-Signed Date of Service:04/25/2017 01:36 PM Patient Type:Inpatient Staff Member:Nida Edwards Hours:0.25 Discipline:Inspector [employer] Negative Severity: Comment:
[2017-04-26] MEDS ORDERED: LOSARTAN POTASSIUM 50 MG TAB PO SCH (09:00)
== END 2017-04-25 14:04 | DRG 86 ==
LOC: EDUNIT# → F2N 16:56 → F3N 04-22 16:49
PROVIDERS: ADMIT Surgery; ATTEND Internal Medicine
PROC: 30233R1 Transfusion of Nonautologous Platelets into Peripheral Vein, Percutaneous Approach (ICD-10-PCS; principal; 2017-04-21)
DX: S06.5X0A Traumatic subdural hemorrhage without loss of consciousness, initial encounter (principal); W19.XXXA Unspecified fall, initial encounter; Y92.009 Unspecified place in unspecified non-institutional (private) residence as the place of occurrence of the external cause; E87.1 Hypo-osmolality and hyponatremia; Z91.81 History of falling; I25.10 Atherosclerotic heart disease of native coronary artery without angina pectoris; I10 Essential (primary) hypertension; E11.9 Type 2 diabetes mellitus without complications; R51 Headache; M54.2 Cervicalgia; R35.0 Frequency of micturition; M10.9 Gout, unspecified; M81.0 Age-related osteoporosis without current pathological fracture; I25.2 Old myocardial infarction; Z79.01 Long term (current) use of anticoagulants; Z98.1 Arthrodesis status; Z79.4 Long term (current) use of insulin; Z79.82 Long term (current) use of aspirin; Z95.5 Presence of coronary angioplasty implant and graft; Z66 Do not resuscitate; Z86.73 Personal history of transient ischemic attack (TIA), and cerebral infarction without residual deficits
CPT/HCPCS: 92507-GN; 92523-GN; 96365; 96374; 97116-GP; 97161-GP; 97166-GO; 97530-GP; 97535-GO; G8978-GP-CJ; G8979-GP-CI; G8987-GO-CJ; G8988-GO-CI; G8989-GO-CI; G9168-GO-CI; G9169-GN-CI; J0360; J1953; J2597; P9035

== ENCOUNTER → 2017-05-12 | Outpatient (CLI) | payer OTHER | LOC: CIMAGING 13:58 | PROVIDERS: ATTEND Nurse Practitioner | DX: S06.5X0A Traumatic subdural hemorrhage without loss of consciousness, initial encounter (principal); I67.2 Cerebral atherosclerosis | CPT/HCPCS: 70450-PO ==

== ENCOUNTER → 2017-06-13 | Outpatient (CLI) | payer OTHER | LOC: CIMAGING 13:26 | PROVIDERS: ATTEND Physician Assistant | DX: S06.5X0D Traumatic subdural hemorrhage without loss of consciousness, subsequent encounter (principal) | CPT/HCPCS: 70450-PO; 99000-PO ==

== ENCOUNTER → 2017-07-12 | Outpatient (CLI) | payer OTHER | LOC: CIMAGING 09:24 | PROVIDERS: ATTEND Physician Assistant | DX: S06.5X0D Traumatic subdural hemorrhage without loss of consciousness, subsequent encounter (principal) | CPT/HCPCS: 70450-PO ==

== ENCOUNTER → 2017-08-16 | Outpatient (CLI) | payer OTHER | LOC: CIMAGING 14:03 | PROVIDERS: ATTEND Physician Assistant | DX: S06.5X0D Traumatic subdural hemorrhage without loss of consciousness, subsequent encounter (principal); I67.2 Cerebral atherosclerosis | CPT/HCPCS: 70450-PO ==

== ENCOUNTER → 2017-09-01 | Outpatient (CLI) | payer OTHER, MEDICARE | LOC: CIMAGING 14:08 | PROVIDERS: ATTEND Nurse Practitioner | DX: S06.5X0D Traumatic subdural hemorrhage without loss of consciousness, subsequent encounter (principal) | CPT/HCPCS: 70450-PO ==

== ENCOUNTER 2017-11-12 11:00 | Emergency (ER) | payer OTHER, MEDICARE ==
--- NOTE | 2017-11-12 11:25 | EDPHY ---
H & P Stated Complaint: left knee pain, unable to bear weight Time Seen by Provider: 11/12/17 11:24 HPI/ROS: HPI: This is a 87-year-old female who presents with Chief Complaint: left knee pain, unable to bear weight Location: Left knee Quality: Pain Duration: 3-4 days Signs and Symptoms: No bleeding, no radiation, no numbness, no weakness, no tingling, no incontinence, + decreased range of motion, + swelling, + pain, no fever Timing: Gradually worsened Severity: Moderate to severe Context: Patient is a resident of assisted living, history of mild dementia per her daughter, status post accidental fall in March of 2017 presents today with worsening left knee pain. Having difficulty bearing weight on it today. Yesterday the son-in-law noted the need to be mildly to moderately swollen. Today has increased by 25%. Denies any fever/warmth/drainage. No history of gouty arthropathy. Patient has a history of hip replacement by Dr. Lopez greater than 10 years ago. Denies LOC/head injury/neck pain/dizziness/nausea/ vomiting/amnesia. Uses a cane or walker to aid ambulation at baseline. Family reports that patient is very sensitive to pain medications and becomes easily confused. She was given 50 mg of Ultram last night with [id number] relief of pain but slept for greater than 10 hr. Modifying Factors: See above Comment: ROS: see HPI Constitutional: No fever, no chills, no weight loss Eyes: No blurred vision Respiratory: No shortness of breath, no cough Cardiovascular: No chest pain Gastrointestinal: No nausea, no vomiting no diarrhea Genitourinary: No dysuria Extremities: No myalgias Neurologic: No weakness, no numbness Skin: No rashes Hematologic: No bruising, no bleeding MEDICAL/SURGICAL/SOCIAL HISTORY: Medical/ Surgical history: [place] 07/15/17 at [facility] treated without aggressive intervention due to patient's DNR status HTN, H. Pylori, presbyopia hyperlipidemia, duodenal ulcer insomnia, hysterectomy gout, spinal stenosis ASHD, lactose intolerance osteoporosis TIA stents x2 Social history: CONSTITUTIONAL: Pleasant eat confused female, awake and alert, no obvious distress HEENT: Atraumatic and normocephalic. NECK: supple, no midline tenderness, flexion 45 degrees, extension 45 degrees, right and left lateral flexion 45 degrees. No meningismus. Cardiovascular: Normal S1/S2, regular rate, regular rhythm, without murmur rub or gallop. PULMONARY/CHEST: Symmetrical and nontender. no crepitus. Clear to auscultation bilaterally. Good air movement. No accessory muscle usage. ABDOMEN: Soft, nondistended, nontender, no ecchymosis. PELVIC: no pain with rocking; bilateral hips flexion 125 degrees, extension 30 degrees, with no pain internal rotation and no pain external rotation. BACK: No midline tenderness, no paraspinous spasm, deep tendon reflexes 2/2, no pain with straight leg raise, No foot drop. Achilles reflexes are equal bilaterally. Able to walk on heels and toes without difficulty. EXTREMITIES: 2/2 pulses, strength 5/5, left KNEE: Moderate effusion, + medial joint line tenderness, no lateral joint line tenderness, extension to 150, flexion to 80. No pain with varus and valgus exam. No pain with anterior drawer or posterior drawer test. No warmth/redness. good light touch sensation. no deformities, no clubbing, no cyanosis or edema. NEUROLOGICAL: no focal neuro deficits. GCS 15. Light touch sensation intact. SKIN: Warm and dry, no erythema. no rash. Good capillary refill. Source: Patient Exam Limitations: No limitations - Personal History Current Tetanus Diphtheria and Acellular Pertussis (TDAP): Yes Tetanus Vaccine Date: <10 years - Medical/Surgical History Hx Asthma: Yes Hx Chronic Respiratory Disease: No Hx Diabetes: Yes Hx Cardiac Disease: Yes Hx Renal Disease: No Hx Cirrhosis: No Hx Alcoholism: No Hx HIV/AIDS: No Hx Splenectomy or Spleen Trauma: No Other PMH: multiple falls, SDH- 03/22/2017. Coronary artery disease with stents 7 [facility] ago at [facility]. [place] 07/15/17 at [facility] treated without aggressive intervention due to patient's DNR status. HTN, hpylori, presbyopia. hyperlipidemia, duodenal ulcer. insomnia, hysterectomy. gout, spinal stenosis. ASHD, lactose intolerance. osteoporosis. TIA. stents x2 - Social History Smoking Status: Never smoked Constitutional: Initial Vital Signs Heart Rate 59 L 11/12/17 11:03 Respiratory Rate 16 11/12/17 11:03 Blood Pressure 187/106 H 11/12/17 11:03 O2 Sat (%) 91 L 11/12/17 11:03 O2 Delivery Mode Room Air Allergies/Adverse Reactions: tetracycline [Tetracycline] Allergy (Severe, Verified 04/21/17 11:54) Diarrhea lisinopril Allergy (Mild, Verified 04/21/17 11:54) Influenza Virus Vaccines Allergy (Unknown, Unverified 05/16/17 14:08) pregabalin Allergy (Unknown, Unverified 05/16/17 14:08) promethazine HCl [From Phenergan] Allergy (Unknown, Verified 04/21/17 11:54) lactose Allergy (Verified 04/21/17 17:50) ondansetron HCl [From Zofran (as hydrochloride)] Allergy (Verified 04/21/17 11: 54) ondansetron HCl Allergy (Unknown, Uncoded 05/16/17 14:08) promethazine HCl Allergy (Unknown, Uncoded 05/16/17 14:08) Home Medications: Medication Instructions Recorded Allopurinol [Allopurinol 300 MG 150 mg PO DAILY18 10/24/15 (RX)] Atorvastatin Calcium [Lipitor 10 10 mg PO DAILY18 10/24/15 mg (*)] Calcium Carbonate [Tums 500MG (*)] 500 mg PO TID PRN 10/24/15 Cetirizine HCl [Zyrtec] 10 mg PO DAILY PRN 10/24/15 Cholecalciferol Vit D3 [Vitamin D3 1,000 units PO DAILY 10/24/15 (*)] D-Methorphan Hb/P-Ephed HCl 10 ml PO Q4 PRN 10/24/15 [Tussin Cough & Cold Liquid] Herbals/Supplements -Info Only 1 ea PO DAILY 10/24/15 Loperamide HCl [Imodium 2 mg (*)] 4 mg PO Q8HRS PRN 10/24/15 Losartan Potassium [Cozaar 50 mg 50 mg PO DAILY 10/24/15 (*)] Nitroglycerin [Nitrostat 0.4 mg 0.4 mg SL PRN PRN 10/24/15 (*)] Sennosides/Docusate Sodium 1 each PO DAILY PRN 10/24/15 [Senokot-S] HYDROmorphone HCL [Dilaudid 2 mg 2 mg PO Q4H PRN #60 tab 10/29/15 (*)] Pantoprazole Sodium [Protonix 40mg 40 mg PO DAILY #90 tab 10/29/15 (*)] Acetaminophen [Tylenol 325mg (*)] 325 - 650 mg PO Q4HRS PRN #0 tab 03/22/17 Albuterol [Proventil Inhaler HFA 2 puffs IH Q4HRS 03/22/17 (*)] Amoxicillin 2,000 mg PO DAILY PRN 03/22/17 Methocarbamol [Robaxin 750 mg (*)] 375 mg PO Q4HRS PRN 03/22/17 Metoclopramide [Reglan 10 mg tab 10 mg PO Q6HRS PRN 03/22/17 (*)] Prochlorperazine Maleate 25 mg ME BID PRN 03/22/17 [Compazine 25mg supp (*)] Prochlorperazine Maleate 5 mg PO Q6-8PRN PRN 03/22/17 [Compazine 5mg (*)] Scopolamine [Transderm-Scop] 1.5 mg TD Q3D PRN 03/22/17 Econazole 1% [Spectazole 1%] 1 charbel TP BID 04/21/17 Fluticasone/Salmeterol [Advair Hfa 2 puffs IN BID 04/22/17 115-21 Mcg Inhaler] Lidocaine 5% [Lidoderm 5% Patch] 1 ea TD DAILY patch 04/25/17 Pantoprazole Sodium [Protonix 40mg 40 mg PO DAILY tab 04/25/17 (*)] Patch Removal 1 ea TD DAILY21 patch 04/25/17 Tears/Dextran 70/Hypromellose 2 drop EACHEYE TID #0 opht.btl 04/25/17 [Natural Balance Tears (*)] Tranexamic Acid 650 mg PO TID #60 tab 04/25/17 Diclofenac Sodium [Voltaren] 1 applic TP Q6 PRN #100 gel..gram. 11/12/17 Medical Decision Making - Diagnostics Imaging Results: Imaging Impressions Knee X-Ray 11/12/17 11:17 Impression: 1. 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 Chondromalacia patella 3. Atherosclerosis. Procedures: Procedure: Splint placement. A right knee immobilizer was applied by the Emergency Room blood bank laboratory technician. After application of the splint I returned and re-examined the patient. The splint was adequately immobilizing the joint and distal to the splint the patient's circulation and sensation was intact. ED Course/Re-evaluation: X-ray shows per my read shows chondromalacia and moderate degenerative changes most prominent in the medial compartment. Long discussion with patient, daughter, son-in-law regarding treatment options; including joint aspiration; intra-articular steroid injection; knee immobilization; rice therapy. It was decided at this time that patient be placed in a knee immobilizer; rice treatment over the weekend with topical Voltaren gel and p.o.Ultram as needed. Patient and patient's family will call Orthopedics on Tuesday for follow-up appointment as they wished to have all procedures performed in one visit outpatient. This patient was seen under the supervision of my secondary supervising physician. I evaluated care for this patient independently. Discussed this patient with Dr. Oviedo who did not see the patient. Differential Diagnosis: Knee injury while [] including but not limited to fracture, ACL injury, contusion, muscular strain, and meniscus injury. 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 Take Tylenol 650 mg every 4 hours and/or Ibuprofen 600 mg every 8 hours with food as needed for pain. Apply Voltaren gel every 6 hr as needed for left knee pain on the anterior portion. Transfer using toe-touch method with assistance from nursing staff. Limit walking distances to less than 5 ft at a time. Elevate left lower extremity as much as possible. Apply ice for 30 minutes at a time; 2-3 times per day for the next 1-2 days. Call Orthopedics on Tuesday for an appointment to discuss aspiration and intra- articular steroid injection. Referrals: Bhupendra Oconnor MD [Primary Care Provider] - As per Instructions Bernardo Beyer MD [Medical Doctor] - As per Instructions Prescriptions: Diclofenac Sodium [Voltaren] 1 applic TP Q6 PRN #100 gel..gram. PRN Reason: Pain, Moderate
[2017-11-12 12:22] VITALS: BP 173/65; PULSE 58; RESP 12; TEMP 98.4; O2SAT 94
== END 2017-11-12 12:23 | disposition home or self-care (01) ==
DX: M17.12 Unilateral primary osteoarthritis, left knee (principal); M25.462 Effusion, left knee; M22.42 Chondromalacia patellae, left knee; I25.2 Old myocardial infarction; I10 Essential (primary) hypertension; I25.10 Atherosclerotic heart disease of native coronary artery without angina pectoris; Z95.5 Presence of coronary angioplasty implant and graft
CPT/HCPCS: 73564; 99283; L1830